=== PATIENT | female | born 1930 | race Caucasian/White ===

== ENCOUNTER 2018-07-15 05:27 | Observation (INO) | payer MEDICARE, BC ==
[2018-07-13 16:24] LABS: BASOPHILS # (AUTO) 0.1 (0.0-0.1); EOSINOPHILS # (AUTO) 0.2 (0.0-0.4); EOSINOPHILS % 2.2 % (0.0-6.0); HEMATOCRIT 37.8 % (34.2-44.1); HEMOGLOBIN 12.1 g/dL (12.0-16.0); LYMPHOCYTES # (AUTO) 1.5 (1.0-3.2); LYMPHOCYTES % 22.2 % (18.0-39.1); MEAN CORPUSCULAR HEMOGLOBIN 31.2 pg (28-32); MEAN CORPUSCULAR VOLUME 97.4 fL (81-99); MONOCYTES # (AUTO) 0.6 (0.2-0.8); MONOCYTES % 9.3 % (4.4-11.3); NEUTROPHILS # (AUTO) 4.3 (2.1-6.9); NEUTROPHILS % 64.3 % (38.7-80.0); PLATELET COUNT 267 x10e3/uL (140-360); RED BLOOD COUNT 3.88 x10e6/uL (3.6-5.1); RED CELL DISTRIBUTION WIDTH 13.5 % (11.7-14.4)
[2018-07-13 16:37] LABS: INR 0.95; PROTHROMBIN TIME 13.5 seconds (11.9-14.5)
[2018-07-13 16:38] LABS: PARTIAL THROMBOPLASTIN TIME 27.7 seconds (23.8-35.5)
[2018-07-13 16:49] LABS: ANION GAP 14.1 mmol/L (8-16); CALCIUM 8.5 mg/dL (8.4-10.2); CREATININE, SERUM 2.12 mg/dL (0.57-1.11); POTASSIUM 5.1 mmol/L (3.5-5.1)
--- NOTE | 2018-07-13 17:39 | Diagnostic Imaging Report ---
Frontal and lateral views of the chest. HISTORY: Preop, lumbar surgery COMPARISON: None available. DISCUSSION: Lungs: Minimal biapical pleural-parenchymal scarring. Mildly increased peribronchial interstitial markings. No evidence of a consolidative pneumonia or pulmonary alveolar edema. Pleura: No pleural effusion or pneumothorax. Heart and mediastinum: The cardiomediastinal silhouette appears unremarkable. Atherosclerotic vascular calcifications at the aortic arch. Bones and soft tissues: Diffusely decreased mineralization of the osseous structures limits bone detail. Approximately 50% height loss of a mid to upper thoracic spine vertebral body. Multilevel degenerative changes of the axial skeleton. IMPRESSION: 1. Findings which can be seen in the setting of a nonspecific bronchitis, correlate for chronic bronchitis. 2. Diffuse osseous demineralization and an age-indeterminate anterior wedge compression fracture deformity of a mid to upper thoracic spine vertebral body. Signed by: Dr. Ravi Moreno D.O., M.M.M. on 07/13/2018 5:36 PM
[~2018-07-15] VITALS: Ht 162.6 cm; Wt 104.1 kg
[~2018-07-15 05:27] MED LIST: ATORVASTATIN CA10 MG PO; CARVEDILOL12.5 MG PO; CARVEDILOL25 MG PO; CLOPIDOGREL75 MG PO; EVISTA60 MG PO; GLIMEPIRIDE2 MG PO; GLIMEPIRIDE4 MG PO; HYDRALAZINE HCL10 MG PO; HYDROCHLOROTHIA25 MG PO; ISOSORBIDE DINIT5 MG PO; LANTUS 3ML100 UNITS/ SQ; METFORMIN HCL500 MG PO; NORVASC5 MG PO; NOVOLOG100 UNITS1 SC; SODIUM BICARBO650 MG PO; VENLAFAXINE HC150 M1 PO
--- OUTSIDE RECORDS SUMMARY | 2018-07-15 05:31 | XMS REPORT ---
Author Author [facility] Address Unknown Phone Unavailable Care Team Providers Care Signals Intelligence Analyst Name Role Phone CITLALI DURANT Unavailable Unavailable Payers Payer Name Policy Type Policy Number Effective Date Expiration Date Problems This patient has no known problems. Allergies, Adverse Reactions, Alerts Allergy Name Allergy Type Status Severity Reaction(s) Onset Date Inactive Date Treating Clinician Comments morphine DA Active SV 2018-03-10 00:00:00 codeine DA Active SV 2018-03-10 00:00:00 hydrocodone DA Active SV 2018-03-10 00:00:00 tramadol DA Active U 2018-03-10 00:00:00 morphine DA Active SV 2018-03-09 00:00:00 codeine DA Active SV 2018-03-09 00:00:00 hydrocodone DA Active SV 2018-03-09 00:00:00 tramadol DA Active U 2018-03-09 00:00:00 morphine DA Active SV 2017-01-23 00:00:00 codeine DA Active SV 2017-01-23 00:00:00 hydrocodone DA Active SV 2017-01-23 00:00:00 Medications This patient has no known medications. Results Test Description Test Time Test Comments Text Results Atomic Results Result Comments CHEST 2 VIEWS 2018-07-13 17:33:00 [facility] [address], [place] [address] Patient Name: DEBORAH CH MR #: [id number] : 1930 Age/Sex: 87/F Req #: [id number] Adm Physician: Ordered by: CITLALI DURANT MD Report #: [id number] Location: OR Room/Bed: Procedure: [id number] DX/CHEST 2 VIEWS Exam Date: 07/13/18 Exam Time: 1657 REPORT STATUS: Signed Frontal and lateral views of the chest. HISTORY: Preop, lumbar surgery COMPARISON: None available. DISCUSSION: Lungs: Minimal biapical pleural-parenchymal scarring. Mildly increased peribronchial interstitial markings. No evidence of a consolidative pneumonia or pulmonary alveolar edema. Pleura: No pleural effusion or pneumothorax. Heart and mediastinum: The cardiomediastinal silhouette appears unremarkable. Atherosclerotic vascular calcifications at the aortic arch. Bones and soft tissues: Diffusely decreased mineralization of the osseous structures limits bone detail. Approximately 50% height loss of a mid to upper thoracic spine vertebral body. Multilevel degenerative changes of the axial skeleton. IMPRESSION: 1. Findings which can be seen in the setting of a nonspecific bronchitis, correlate for chronic bronchitis. 2. Diffuse osseous demineralization and an age-indeterminate anterior wedge compression fracture deformity of a mid to upper thoracic spine vertebral body. Signed by: Vanessa ArroyoO., M.M.M. on 07/13/2018 5:36 PM Dictated By: STEFFANY DE GUZMAN DO [id number] Transcribed By: MO on 07/13/18 1736 COPY TO: CITLALI DURANT MD
[2018-07-15] MEDS ORDERED: CEFAZOLIN SOD 2 GM/D5W 50ML 50 ML IV ONE (05:40)
[2018-07-15] MEDS ORDERED: BUPIVACAINE 0.5%/EPI 30 ML SDV INJ ONE (06:23)
[2018-07-15] MEDS ORDERED: THROMBIN FOR SOLN 5,000 UNIT VIAL ONE (06:23)
[2018-07-15] MEDS ORDERED: GELATIN SPONGE 12-7MM ONE (06:23)
[2018-07-15] MEDS ORDERED: BACITRACIN 50,000 UNIT VIAL ONE (06:23)
[2018-07-15] MEDS ORDERED: ACETAMINOPHEN 1000 MG/100 ML 100 ML IV ONE (07:11)
[2018-07-15] MEDS ORDERED: LIDOCAINE HCL (LTA) 4 ML SOLN ONE (07:11)
[2018-07-15] MEDS ORDERED: HEPARIN SOD/SOD CHLORIDE 1,000 ML ONE (07:29)
[2018-07-15] MEDS ORDERED: FENTANYL CITRATE/PF 100MCG/2 ML INJ ONE (09:07)
[2018-07-15] MEDS ORDERED: ZOLPIDEM TARTRATE 5 MG TAB PO PRN (09:15)
[2018-07-15] MEDS ORDERED: ONDANSETRON HCL INJ 2MG/ML 2ML 2 MG/ML VIAL IV PRN (09:15)
[2018-07-15] MEDS ORDERED: CARISOPRODOL 350 MG TAB PO PRN (09:15)
[2018-07-15] MEDS ORDERED: DEXTROSE 50% SYRINGE 50 ML IV PRN (09:15)
[2018-07-15] MEDS ORDERED: HYDROMORPHONE 2MG/ML 2 MG/ML ML IV PRN (09:15)
[2018-07-15] MEDS ORDERED: OXYCODONE/ACETAMINOPHEN 5-325 1 EACH TABLET PO PRN (09:15)
[2018-07-15] MEDS ORDERED: ACETAMINOPHEN 325 MG TAB PO PRN (09:15)
[2018-07-15] MEDS ORDERED: CEPACOL SORE THROAT LOZENGES PO PRN (09:15)
[2018-07-15] MEDS ORDERED: PROMETHAZINE HCL (IM) 25 MG/ML VIAL IM PRN (09:15)
[2018-07-15] MEDS ORDERED: MAGNESIUM/ALUMINUM/SIMETHICONE 30 ML UDC PO PRN (09:15)
[2018-07-15] MEDS ORDERED: HYDRALAZINE HCL 20 MG/ML VIAL ONE (09:59)
[2018-07-15] MEDS: INSULIN LISPRO 100 UNIT/1 ML 3ML VIAL SQ SCH ×3 (11:30→21:00)
--- NOTE | 2018-07-15 11:39 | Operative Report ---
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 PROCEDURES 1. L3 bilateral decompressive laminectomy and L3-L4 bilateral medial facetectomy, 40886. 2. L4 bilateral partial decompressive laminectomy, 16564. ANESTHESIA: General. INDICATIONS: Patient is an elderly woman who presents with multilevel degenerative disk disease and degenerative scoliosis, worse at L3-4 where she has developed severe spinal stenosis with neurogenic claudication. She was taken to the operating room for a L3-4 bilateral decompressive laminectomy. PROCEDURE: After the induction of general anesthesia, the patient was placed on the operating table in prone position over a Primitivo frame. Lumbar region was prepped and draped in a sterile fashion. A preoperative x-ray was obtained. A small midline incision was created. Lumbar fascia was opened along the midline, and the spinous processes and laminae of L3 and L4 were exposed. A probe was placed under the L4 lamina, and x-ray was obtained. Localization was then directed to the L3-L4 segment. Portions of the L3 and L4 spinous processes were resected. An expandable speculum retractor was deployed. The operating microscope was brought in. A high-speed drill equipped with a shayna bur was used to drill the inferior aspect of the lamina of L3 and superior aspect of the lamina of L4 and the medial aspect of the L3-L4 hypertrophic facet joints bilaterally. The markedly hypertrophic ligamentum flavum was then resected, and the dural sac and L4 traversing nerve roots were fully exposed and decompressed bilaterally. Meticulous hemostasis was secured. Small pieces of Gelfoam were left in the lateral recesses for hemostasis. A Hemovac drain was placed and brought out through a separate stab incision. The wound was closed in multiple layers with #0 and 2-0 Vicryl sutures. The skin was closed with 3-0 Monocryl sutures in subcuticular fashion. Steri-Strips and dressing were applied. The patient was awakened, extubated and taken to the postanesthesia care unit in stable condition. No intraoperative complications were encountered. Estimated blood loss was 30 mL. Job#: [id number]
[2018-07-15] MEDS: HYDRALAZINE HCL 10 MG TAB PO SCH ×3 (13:00→21:41)
[2018-07-15] MEDS ORDERED: TRAMADOL HCL 50 MG TAB ONE (13:27)
[2018-07-15 14:46] VITALS: BP 147/64
[2018-07-15] MEDS: CEFAZOLIN SOD 1 GM/D5W 50ML 50 ML IV SCH ×2 (15:20→21:41)
[2018-07-15 15:48] VITALS: BP 130/60
--- NOTE | 2018-07-15 16:25 | NUR ---
PT ADMITTED FROM PACU TO UNIT THIS AFTERNOON 1400, S/P LAMINECTOMY WITH PNEUMO VAC INPLACE AND MINIMAL DRAINAGE NOTED. AAOX4, CONTINENT OF B/B AMBULATE WITH A ROLLING WALKER FROM HOME. ORIENTED TO ROOM WITH CALL LIGHT INPLACE. DENIES PAIN AT THIS MOMENT. FAMILY IN ROOM .
[2018-07-15] MEDS ORDERED: NON-FORMULARY MEDICATION (Isosorbide Dinitrate 5 MG) PO SCH (17:00)
[2018-07-15] MEDS: LACTATED RINGER'S 1,000 ML IV SCH ×2 (17:24→21:59)
[2018-07-15] MEDS: CARVEDILOL 12.5 MG TAB PO SCH (17:57)
[2018-07-15] MEDS: ISOSORBIDE DINITRATE 20 MG TAB PO SCH (17:58)
[2018-07-15] MEDS ORDERED: ONDANSETRON HCL INJ 2MG/ML 2ML 2 MG/ML VIAL ONE (19:54)
[2018-07-15] MEDS ORDERED: ROCURONIUM BROMIDE 10 MG/ML 5ML VIAL ONE (19:54)
[2018-07-15] MEDS ORDERED: LIDOCAINE HCL 2% LOCAL INJ 5 ML SDV VIAL INJ ONE (19:54)
[2018-07-15] MEDS ORDERED: PROPOFOL IV EMULSION 10 MG/ML 20 ML VIAL ONE (19:54)
[2018-07-15] MEDS ORDERED: DEXAMETHASONE SOD PHOS INJ 4 MG/ML VIAL ONE (19:54)
[2018-07-15] MEDS ORDERED: DESFLURANE 240 ML BTL INH ONE (19:54)
[2018-07-15] MEDS ORDERED: LIDOCAINE HCL 2% JELLY 5 ML TUBE ONE (19:54)
--- NOTE | 2018-07-15 20:45 | NUR ---
RECEIVED PT IN BED AOX3 RESPIRATIONS ARE EVEN AND UNLABORED DRESSING AT THE BACK DRY AND INTACT AND DRAINING RICARDO COLORED FLUID HELPED THE TO THE RESTROOM.
[2018-07-15 20:53] VITALS: BP 172/76
[2018-07-15] MEDS ORDERED: ATORVASTATIN 40 MG TAB PO SCH (21:00)
[2018-07-15] MEDS: TRAMADOL HCL 50 MG TAB PO PRN (21:57)
[2018-07-16] VITALS: BP 185/79
[2018-07-16] MEDS: LACTATED RINGER'S 1,000 ML IV SCH (01:44)
[2018-07-16 04:00] VITALS: BP 164/71
[2018-07-16] MEDS: CEFAZOLIN SOD 1 GM/D5W 50ML 50 ML IV SCH (06:07)
[2018-07-16] MEDS: TRAMADOL HCL 50 MG TAB PO PRN (06:08)
[2018-07-16] MEDS ORDERED: SOD POLYSTYRENE SULFONATE SUSP 15 GM/60 ML BTL PO ONE (06:15)
[2018-07-16 06:42] VITALS: BP 164/71
--- NOTE | 2018-07-16 07:00 | NUR ---
GOT THE ORDER FROM DR CURTIS TO GIVE KEXALATE CHECKED THE CHART I COULD NOT FIND OUT DR JOYCE NAME IN PATIENTS LIST SO PAGED AND TALKED DR DURANT REGARDING THAT HE SAID TALK DR CURTIS AND CONFIRM THE CORRECT PT BECAUSE HE DID NOT PUT THE CONSULTATION AND FOLLOW HIS ORDERS SO PAGED AND TALKED DR CURTIS HE IS VERY UPSET ABOUT THE CLARIFICATION HE SAID HER NAME IN HIS LIST THE I T NOTIFIED THE KITCHEN CHEF SHE CHECKED HIS NAME IS NOT IN OUR LIST
--- NOTE | 2018-07-16 07:10 | NUR ---
RCD PT AT BED PT IS ALERT AND ORIENTED PT RESTING ON BED NO SIGNS OF ANY DISTRESS NOTED IV PATENT NO SIGNS OF BLEEDING ON THE SURGICAL SITE BED LOW AND LOCKED CALL LIGHT IN REACH
[2018-07-16 07:26] LABS: ANION GAP 12.4 mmol/L (8-16); POTASSIUM 5.4 mmol/L (3.5-5.1)
[2018-07-16] MEDS: INSULIN LISPRO 100 UNIT/1 ML 3ML VIAL SQ SCH ×2 (07:30→11:30)
--- NOTE | 2018-07-16 07:31 | NUR ---
PT C/O PAIN AND GIVEN ORDERED PAIN MEDICATION .REPORT GIVEN TO THE ONCOMING NURSE.
--- NOTE | 2018-07-16 07:32 | NUR ---
HEMOVAC DRAINAGE IS 11O ML.
[2018-07-16 08:00] VITALS: BP 198/79
--- NOTE | 2018-07-16 08:15 | NUR ---
PULLED DRAIN OUT NO SIGNS OF BLEEDING 15 ML DRAINAGE IN THE BAG
--- NOTE | 2018-07-16 08:15 | NUR ---
DRESSING CHANGED ON THE BACK
[2018-07-16 09:00] VITALS: BP 198/79
[2018-07-16] MEDS ORDERED: NON-FORMULARY MEDICATION (Venlafaxine Hcl (Venlafaxine Hcl Er) 150 MG) PO SCH (09:00)
[2018-07-16] MEDS: HYDRALAZINE HCL 10 MG TAB PO SCH (09:00)
[2018-07-16] MEDS ORDERED: SODIUM BICARBONATE 650 MG TAB PO SCH (09:00)
[2018-07-16] MEDS: CARVEDILOL 12.5 MG TAB PO SCH (09:00)
[2018-07-16] MEDS ORDERED: VENLAFAXINE HCL 75 MG CAPCR PO SCH (09:00)
[2018-07-16] MEDS ORDERED: HYDROCHLOROTHIAZIDE 25 MG TAB PO SCH (09:00)
[2018-07-16] MEDS ORDERED: ATORVASTATIN 10 MG TAB PO SCH (09:00)
[2018-07-16] MEDS: ISOSORBIDE DINITRATE 20 MG TAB PO SCH (09:00)
--- NOTE | 2018-07-16 10:14 | NUR ---
CASE MANAGEMENT INITIAL ASSESSMENT Retail Coverage Merchandiser Lead to bedside to discuss plan of care with patient/family. CM/SW role and care transitions discussed. Anticipated discharge plan discussed along with duration of care. CM discussed patients right to make decisions in care. CM/SW work hours given. Patient lives: PATIENT LIVE IN APT ON THE 3RD FLOOR WITH [facility] IN [place], [place] WITH Admit/Transfer: OR POA/Emergency contact: MANJIT CH: [phone] Current/Previous Home Health: ONCE BEFORE. DOES NOT REMEMBER NAME PCP/Follow-up Care: DR. DORA RENE Current/Previous DME: TUB BENCH, ROLLATOR Other Services: NOT AT THIS TIME Employment Status: RETIRED Areas of Concerns: MOBILITY POST DISCHARGE Referral Needs: HOME HEALTH Education Needs: NOT AT THIS TIME IMM/SANTOS given and signed (if applicable): NOT AT THIS TIME Goal for discharge: DISCHARGE HOME INDEPENDENT WITH NO NEEDS CM left business card at the bedside with contact information. Name and number was also written on the patients whiteboard. Patient verbalized understanding of discussion. CM will follow-up with ongoing discharge and transition of care needs.
[2018-07-16 12:00] VITALS: BP 153/66
--- NOTE | 2018-07-16 12:28 | NUR ---
CM SPOKE TO PATIENT AT BEDSIDE REGARDING SANTOS LETTER. SANTOS LETTER GIVEN WITH EXPLANATION. ORIGINAL SIGNED AND PLACED IN CHART; COPY OF ORIGINAL DOCUMENT GIVEN TO PATIENT AT BEDSIDE AND PLACED IN CARE TRANSITION FOLDER. CM CONTACT INFORMATION GIVEN TO PATIENT FOR ANY NEEDS OR CONCERNS. PATIENT WITH NO FURTHER QUESTIONS.
[2018-07-16 14:11] LABS: ANION GAP 12.8 mmol/L (8-16); CALCIUM 8.9 mg/dL (8.4-10.2); CREATININE, SERUM 1.89 mg/dL (0.57-1.11); POTASSIUM 4.8 mmol/L (3.5-5.1)
--- NOTE | 2018-07-16 14:17 | NUR ---
PAGED DR CURTIS TO NOTIFY THE POTASSIUM LEVEL AND LEFT THE MESSAGE
--- NOTE | 2018-07-16 14:39 | NUR ---
AGAIN PAGED AND NOTIFIED THE POTASSIUM LEVEL AND GOT THE ORDER OK TO DISCHARGE
[2018-07-16] MEDS ORDERED: ULTRAM 50MG50 MG PO (15:08)
--- NOTE | 2018-07-16 15:30 | NUR ---
PT WENT HOME IN SAFE CONDITION WITH HER
== END 2018-07-16 15:46 | disposition home or self-care (01) ==
LOC: OR 05:27 → PACU V 09:07 → MED/SURG2 13:53
PROVIDERS: ADMIT Neurological Surgery; ATTEND Neurological Surgery
DX: M48.062 Spinal stenosis, lumbar region with neurogenic claudication (principal); I11.0 Hypertensive heart disease with heart failure; I50.9 Heart failure, unspecified; I25.10 Atherosclerotic heart disease of native coronary artery without angina pectoris; E11.9 Type 2 diabetes mellitus without complications; Z88.5 Allergy status to narcotic agent; Z01.810 Encounter for preprocedural cardiovascular examination; Z01.812 Encounter for preprocedural laboratory examination; Z01.811 Encounter for preprocedural respiratory examination; Z86.73 Personal history of transient ischemic attack (TIA), and cerebral infarction without residual deficits; F41.9 Anxiety disorder, unspecified; E78.5 Hyperlipidemia, unspecified; E87.6 Hypokalemia
CPT/HCPCS: 36415 ×3; 63047; 63048; 71046; 72020; 80048 ×2; 80051; 82948 ×2; 84132; 85025; 85610; 85730; 86850; 86900; 88304; 88311; 93005; 97116 ×2; 97161; G0378 ×2; J0131; J0360; J0690 ×3; J1100; J1170; J2001 ×2; J2405; J2704; J7121

== ENCOUNTER 2018-08-13 14:41 | Emergency (ER) | payer MEDICARE, BC ==
[~2018-08-13] VITALS: Ht 162.6 cm; Wt 103.9 kg
[~2018-08-13 14:41] MED LIST changes: +ULTRAM 50MG50 MG PO
--- NOTE | 2018-08-13 15:13 | NUR ---
REGULAR DIET ORDERED AND GIVEN TO PATIENT.
== END 2018-08-13 16:13 | disposition home or self-care (01) ==
LOC: ER 14:41
DX: E11.649 Type 2 diabetes mellitus with hypoglycemia without coma (principal); I10 Essential (primary) hypertension; N18.9 Chronic kidney disease, unspecified; I50.9 Heart failure, unspecified
CPT/HCPCS: 36415; 82948; 93005; 99283

== ENCOUNTER 2018-08-18 14:00 | Outpatient (RCR) | payer MEDICARE, BC | END 2018-08-19 | LOC: PT 14:00 | PROVIDERS: ATTEND Neurological Surgery | DX: M48.062 Spinal stenosis, lumbar region with neurogenic claudication (principal); M62.81 Muscle weakness (generalized) ==

== ENCOUNTER 2018-09-14 14:59 | Outpatient (RCR) | payer MEDICARE, BC | END 2018-09-19 | LOC: PT 14:59 | PROVIDERS: ATTEND Neurological Surgery | DX: M48.062 Spinal stenosis, lumbar region with neurogenic claudication (principal); M62.81 Muscle weakness (generalized) | CPT/HCPCS: 97139 ==

== ENCOUNTER 2020-01-19 09:37 | Inpatient (IN) | payer MEDICARE, BC, OTHER ==
[~2020-01-19] VITALS: Ht 162.6 cm; Wt 98.4 kg
[2020-01-19] VITALS (7 sets, daily range): BP systolic 101–190; BP diastolic 55–87
--- NOTE | 2020-01-19 11:30 | NUR ---
Patient here from outside ed. Dr. Scales notified. Consults notified. at bedside, admission complete. Dr ricketts notified and orders recd for meds and patients history
[2020-01-19] MEDS ORDERED: KETOROLAC TROMETHAMINE 30 MG/ML VIAL IV ONE (12:45)
[2020-01-19] MEDS ORDERED: FAMOTIDINE 20 MG TAB PO ONE (14:00)
[2020-01-19] MEDS ORDERED: CLOPIDOGREL BISULFATE 75 MG TAB PO ONE (14:00)
[2020-01-19] MEDS ORDERED: SOD POLYSTYRENE SULFONATE SUSP 15 GM/60 ML BTL PO ONE (15:00)
[2020-01-19] MEDS ORDERED: LACTULOSE SYRUP 20 GM/30 ML UDC PO ONE ×2 (15:00→17:45)
--- NOTE | 2020-01-19 15:12 | Diagnostic Imaging Report ---
MRI SPINE CERVICAL WO HISTORY: Fall, syncope COMPARISON: Report from head CT dated 10/17/2015 TECHNIQUE: Sagittal T1, sagittal T2, sagittal inversion recovery, axial T2 , axial T2 GRE, and axial T1 weighted MR images of the cervical spine were obtained without intravenous contrast. Motion artifacts obscure some details. DISCUSSION: Alignment: Normal lordosis. No scoliosis. Vertebrae: No definite evidence for fractures, or neoplasm. Cervicomedullary junction: Mild T2 hyperintensity in the all may be due to chronic microvascular ischemic change. Spinal cord: Normal in signal and morphology from the foramen magnum through T4. Soft tissues: The carotid arteries have a retropharyngeal course. Approximately 1.2 cm T2 hyperintense thyroid isthmus nodule is present; no further imaging is indicated. Multilevel advanced disc degeneration is present. There are nonspecific minimal inflammatory endplate changes at C4-C5 and C6-C7. Mild atlantoaxial arthrosis is present as well. C2-C3: Mild to moderate right and mild left foraminal stenoses due to uncovertebral and facet arthrosis. No significant canal or foraminal stenosis. The right C2-C3 facet joint appears fused. C3-C4: Mild to moderate canal stenosis due to posterior disc osteophyte complex and ligamentum flavum thickening. Severe right and moderate to severe left foraminal stenoses due to uncovertebral and facet arthrosis. C4-C5: Moderate canal stenosis due to posterior disc osteophyte complex and ligamentum flavum thickening. Severe right and moderate left foraminal stenoses due to uncovertebral and facet arthrosis. There is mild periarticular edema along the right C4-C5 facet joint. C5-C6: Moderate canal stenosis due to posterior disc osteophyte complex and ligamentum flavum thickening. Moderate right and severe left foraminal stenoses due to uncovertebral and facet arthrosis. C6-C7: Moderate canal stenosis due to posterior disc osteophyte complex and ligamentum flavum thickening. Moderate to severe bilateral foraminal stenoses due to uncovertebral and facet arthrosis. C7-T1: Minimal grade 1 anterolisthesis of C7 on T1 is due to facet arthrosis. No significant canal or foraminal stenosis. 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 IMPRESSION: 1. Nonspecific right C4-C5 facet synovitis. 2. Multilevel advanced disc degeneration with nonspecific minimal inflammatory endplate changes at C4-C5 and C6-C7. 3. Multilevel degenerative canal stenoses - moderate from C4-C5 to C6-C7. 4. Multilevel moderate to severe bilateral degenerative foraminal stenoses as described above. Signed by: Dr. Carlito Montiel M.D. on 01/19/2020 3:09 PM
--- NOTE | 2020-01-19 15:32 | NUR ---
patient back from MRI w/o contrast spine, MD Carlito Montiel called from radiology and states in some images pt might be having an acute interracial hemorrhage. Dr. Scales notified and he ordered stop plavix and stat ct head/brain. Same ordered Addendum: 01/19/20 at 1535 by TRACE SHANKAR RN intracranial hemorrhage
--- NOTE | 2020-01-19 15:34 | Diagnostic Imaging Report ---
MRI SPINE THORACIC WO HISTORY: Fall, syncope COMPARISON: Concurrent cervical spine MRI; report from head CT dated 10/17/2015 TECHNIQUE: Sagittal T1, sagittal T2, sagittal STIR, and axial T2 weighted MR images of the thoracic spine were obtained. Motion artifacts obscure some details. DISCUSSION: Thoracic kyphosis is exaggerated at T6-T7. Mild thoracic dextroscoliosis is also centered at approximately T6-T7. Mild to moderate T7 vertebral compression fracture is associated with marrow edema that extends into the bilateral pedicles and pars. There is mild local prevertebral and paravertebral edema/STIR hyperintensity. This fracture may be acute or subacute. There is no significant retropulsion. Associated small bilateral T7-T8 facet effusions are present. Adjacent chronic mild to moderate T6 vertebral compression deformity is associated with minimal inferior endplate edema, likely related to degenerative change (type I Modic change). There is no significant retropulsion. The thoracic cord is normal in signal and morphology. The paravertebral and paraspinal soft tissues are otherwise unremarkable. Degenerative changes: Mild multilevel thoracic disc degeneration is present. Nonspecific minimal inflammatory endplate changes are seen at T10-T11. Mild canal stenosis at T9-T10 and T10-T11 is due to disc bulges and ligamentum flavum thickening. No other significant canal or foraminal stenosis is seen. Additional findings: Partially imaged, apparent lobular susceptibility artifact is seen throughout the ventricles and basilar cisterns on localizer images. This is suspicious for intraventricular/subarachnoid hemorrhage. A few small T2 hyperintense lesions in the right kidney are most likely cysts. IMPRESSION: 1. Mild to moderate T7 vertebral compression fracture (with marrow edema) may be acute or subacute. There is no significant retropulsion. 2. Chronic mild to moderate T6 vertebral compression fracture without significant retropulsion. 3. No cord compression. 4. Underlying mild multilevel thoracic disc degeneration as described above. 5. Questionable findings suspicious for intracranial intraventricular and subarachnoid hemorrhage on localizer images (partially imaged). Further evaluation with noncontrast head CT is recommended given history of fall. Items 1, 3, and 5 were discussed with Federica Fitzpatrick RN, at 3:14 PM on 01/19/2020. Signed by: Dr. Carlito Montiel M.D. on 01/19/2020 3:31 PM
--- NOTE | 2020-01-19 15:50 | Diagnostic Imaging Report ---
MRI SPINE LUMBAR WO HISTORY: Fall, syncope COMPARISON: Lateral lumbar spine radiographs 07/15/2018; concurrent thoracic spine MRI TECHNIQUE: Sagittal T1, sagittal T2, sagittal STIR, axial T2, coronal T2, and axial proton density weighted images of the lumbar spine were obtained without contrast. DISCUSSION: Number of non-rib bearing lumbar vertebral bodies: 5. Alignment: Normal lordosis. Thoracolumbar levoscoliosis is centered at approximately L1-L2. Vertebrae: No definite evidence for acute fractures, or neoplasm. Conus medullaris: Normal, ends at T12-L1. Cauda equina: No masses or arachnoiditis. Posterior paraspinal muscles: There is paraspinal muscle atrophy throughout the lumbar spine. Soft tissues: Posterior incision signal changes are noted. Multiple T2 hyperintense renal lesions, right greater than left, are most likely cysts. Right renal pelviectasis versus parapelvic cyst is present. Sigmoid colon diverticulosis is partially imaged. Multilevel advanced lumbar disc degeneration is present with nonspecific minimal multilevel inflammatory endplate changes. T12-L1: Disc bulge without significant canal or foraminal stenosis. L1-L2: Mild right foraminal stenosis due to disc bulge and facet arthrosis. No significant canal or left foraminal stenosis. L2-L3: Mild canal stenosis due to disc bulge and ligamentum flavum thickening is accentuated by epidural lipomatosis. The thecal sac is mildly effaced. Mild bilateral foraminal stenoses due to disc bulge and facet arthrosis. L3-L4: Laminectomy changes without significant central canal stenosis. Both lateral recesses remain mildly effaced, left greater than right. Moderate to severe right and mild to moderate left foraminal stenoses due to disc bulge and facet arthrosis. L4-L5: Mild to moderate canal stenosis due to disc bulge and ligamentum flavum thickening. Both lateral recesses are mildly effaced. Mild right and moderate to severe left foraminal stenoses due to disc bulge and facet arthrosis. 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 Mild left foraminal stenosis due to uncovered disc bulge. No significant canal or right foraminal stenosis. IMPRESSION: 1. No definite acute fracture in the lumbar spine. 2. Multilevel advanced lumbar disc degeneration with thoracolumbar levoscoliosis centered at approximately L1-L2. 3. Laminectomy changes at L3-L4 without significant central canal stenosis. Both lateral recesses at L3-L4 remain mildly effaced, left greater than right, due to disc bulge. 4. 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 5. Mild L2-L3 and mild to moderate L4-L5 degenerative canal stenoses accentuated by mild epidural lipomatosis. 6. Multilevel degenerative foraminal stenoses - moderate to severe on the right at L3-L4 and on the left at L4-L5. Signed by: Dr. Carlito Montiel M.D. on 01/19/2020 3:46 PM
[2020-01-19] MEDS: HYDRALAZINE HCL 10 MG TAB PO SCH ×2 (15:56→22:00)
[2020-01-19] MEDS: CARVEDILOL 12.5 MG TAB PO SCH (16:01)
[2020-01-19 16:21] LABS: ALBUMIN 3.1 g/dL (3.5-5.0); ALBUMIN/GLOBULIN RATIO 0.9 (0.8-2.0); ANION GAP 14.2 mmol/L (8-16); CALCIUM 8.5 mg/dL (8.4-10.2); CREATININE, SERUM 2.22 mg/dL (0.57-1.11)
[2020-01-19 16:40] LABS: POTASSIUM 6.2 mmol/L (3.5-5.1)
[2020-01-19 17:00] LABS: BASOPHILS % 0.3 % (0.0-1.0); HEMATOCRIT 38.8 % (34.2-44.1); HEMOGLOBIN 11.9 g/dL (12.0-16.0); LYMPHOCYTES % 7.7 % (18.0-39.1); MEAN CORPUSCULAR HEMOGLOBIN 28.4 pg (28-32); MEAN CORPUSCULAR HGB CONC 30.7 g/dL (31-35); MEAN CORPUSCULAR VOLUME 92.6 fL (81-99); MONOCYTES # (AUTO) 1.1 (0.2-0.8); MONOCYTES % 8.7 % (4.4-11.3); NEUTROPHILS # (AUTO) 10.2 (2.1-6.9); NEUTROPHILS % 81.8 % (38.7-80.0); PLATELET COUNT 235 x10e3/uL (140-360); RED BLOOD COUNT 4.19 x10e6/uL (3.6-5.1); RED CELL DISTRIBUTION WIDTH 14.9 % (11.7-14.4)
--- NOTE | 2020-01-19 17:13 | Diagnostic Imaging Report ---
History:Fall, syncope Comparison studies: None Technique: Axial images were obtained from the skull base to the vertex. Coronal and sagittal images reconstructed from the axial data. Dose modulation, iterative reconstruction, and/or weight based adjustment of the mA/kV was utilized to reduce the radiation dose to as low as reasonably achievable. Intravenous contrast: None Findings: Scalp/skull: No abnormalities. Extra-axial spaces: No masses. No fluid collections. Brain sulci: Moderately prominent. Ventricles: Moderate compensatory dilatation. No hydrocephalus. Parenchyma: Cortical encephalomalacic changes in the left lateral occipital lobe associated with regional volume loss and compensatory dilatation of the left occipital horn. 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 Confluent hypodensities throughout the supratentorial white matter are small vessel ischemic changes. No masses, hemorrhage, acute or additional chronic cortical vascular insults. Sellar/suprasellar region: No abnormalities. Craniocervical junction: Patent foramen magnum. No Chiari one malformation. Incidental findings: Subtle calcifications in the carotid siphons . Absent lenses. Punctate senile calcifications in the orbits. Impression: No acute intracranial abnormalities. Chronic findings: 1. Moderate generalized volume loss. 2. Diffuse supratentorial white matter microvascular ischemic changes. Signed by: Dr. Brian Olmos M.D. on 01/19/2020 5:10 PM
[2020-01-19] MEDS ORDERED: INSULIN REGULAR, HUMAN 100 UNIT/1 ML 3ML VIAL SQ ONE (17:45)
[2020-01-19] MEDS ORDERED: DEXTROSE 50% SYRINGE 50 ML IV ONE (17:45)
[2020-01-19] MEDS ORDERED: SOD POLYSTYRENE SULFONATE SUSP 15 GM/60 ML BTL PR ONE (17:45)
[2020-01-19] MEDS ORDERED: HYDRALAZINE HCL 10 MG TAB PO SCH (18:00)
--- NOTE | 2020-01-19 18:32 | NUR ---
FORTUNE COOKIE MAKER INFORMED ME THAT THE PATIENT SEEMS TO BE HAVING TROUBLE BREATHING. ASSESSED, PLACED ON 6 L NC FOR 02 SATS AROUND 80%. CALLED , WHO ORDERED LASIX, CONSULT MD TORIN, SAME AND THEN CALLED A RAPID WHEN O2 SATS KEPT DROPPING TO THE 80S WITH 6 LITERS AND PATIENT BECAME DIAPHOETIC AND PALE.
[2020-01-19] MEDS ORDERED: FUROSEMIDE INJ 10 MG/ML 4 ML VIAL IV NR ×2 (18:45→19:00)
[2020-01-19] MEDS ORDERED: LEVALBUTEROL HCL SOLN NEBU 0.63 MG/3 ML NEB ONE (18:55)
[2020-01-19] MEDS ORDERED: IPRATROPIUM BROMIDE 0.02% 2.5 ML NEB ONE (18:57)
[2020-01-19] MEDS ORDERED: ASPIRIN 81 MG CHEW TAB PO ONE (19:00)
[2020-01-19] MEDS ORDERED: PIPER-TAZ 3.375 GM 50 ML IV ONE (19:15)
[2020-01-19] MEDS ORDERED: LABETALOL HCL 5 MG/ML 20ML VIAL IV NR ×2 (19:30)
[2020-01-19] MEDS ORDERED: LABETALOL HCL 20 ML ONE (19:36)
[2020-01-19 19:37] LABS: CREATINE KINASE MB 3.5 ng/mL (0-5.0)
--- NOTE | 2020-01-19 19:37 | Diagnostic Imaging Report ---
EXAMINATION: CHEST SINGLE (PORTABLE) INDICATION: Shortness of breath. COMPARISON: None FINDINGS: TUBES and LINES: None. LUNGS: There are prominent interstitial lung markings throughout both lungs and hazy opacification of the bilateral lung bases. PLEURA: No pleural effusion or pneumothorax. HEART AND MEDIASTINUM: The heart is enlarged. The mediastinal silhouette is otherwise normal. Atherosclerotic calcification of the thoracic aortic arch. BONES AND SOFT TISSUES: No acute osseous lesion. Chronic fracture deformity of the left mid clavicle. Soft tissues are unremarkable. UPPER ABDOMEN: No free air under the diaphragm. IMPRESSION: Cardiomegaly with pulmonary edema. Superimposed infection of the bilateral lung bases cannot be excluded and should be considered in the proper clinical context. Signed by: Grupo Mcghee MD on 01/19/2020 7:34 PM
[2020-01-19 19:58] LABS: ABG HCO3 28 mmol/L (22-26); ABG PCO2 57 mmHg (35-45); ABG PO2 463 mmHg (80-105); ABG TCO2 29
--- NOTE | 2020-01-19 20:15 | NUR ---
notified of patients change of condition. orders all entered and completed. Blood gases to be drawn in about an hour and results called. Patient to get a helms catheter for accurate outputs. On bipap. awaiting a bed in the icu. supervisor stitching department aware. Resting now with o2 on.
[2020-01-19] MEDS ORDERED: INSULIN GLARGINE 100 UNITS/ML VIAL SQ SCH (21:00)
[2020-01-19] MEDS ORDERED: ATORVASTATIN 20 MG TAB PO SCH (21:00)
--- NOTE | 2020-01-19 21:00 | NUR ---
Damon catheter 16Fr inserted using sterile technique. Pt tolerated well. Yellow clear urine draining to bedside.
--- NOTE | 2020-01-19 21:27 | NUR ---
LM for Dr Scales to call back regarding Ct Brain results and BS 322
[2020-01-19] MEDS: ATORVASTATIN 40 MG TAB PO SCH (22:00)
--- NOTE | 2020-01-19 22:04 | NUR ---
LM for Dr. Scales to call back regarding Ct Brain results and BS 322
[2020-01-19] MEDS ORDERED: DEXTROSE 50% SYRINGE 50 ML IV PRN ×2 (22:15→22:30)
[2020-01-19] MEDS: INSULIN LISPRO 100 UNIT/1 ML 3ML VIAL SQ SCH (22:28)
--- NOTE | 2020-01-19 22:30 | NUR ---
Notified Dr. Moncada to inform of BS 322, New orders given to continue Lantus 18 units in Am order from home and start on Medium dose sliding scale on Humalog. 16 units Humalog given to right arm. Report given to Maxine BACON in [facility]. Informed that messages were left for Dr. Scales regarding CT. Pt in stable condition.
--- NOTE | 2020-01-19 23:00 | NUR ---
Received patient alert, on BIPAP, vitals stable, no complaints raised
--- NOTE | 2020-01-19 23:37 | Consultation ---
DATE OF CONSULTATION: Pulmonary Consultation. REASON FOR CONSULT: Shortness of breath. HISTORY OF PRESENT ILLNESS: Ms. Stewart is an 89-year-old female. She presented with a fall. She was admitted by Dr. Scales. Today I was called that the patient's oxygen saturation is dropping to 86% and she is more short of breath. She does not have any history of sleep apnea. Chest x-ray suggested that the patient possibly has a right middle lobe and lower lobe pneumonia and mild fluid overload. She has a history of hypertension, chronic kidney disease, and diabetes. PAST MEDICAL HISTORY: Hypertension, chronic renal failure, hyperlipidemia, and diabetes. FAMILY AND SOCIAL HISTORY: She does not smoke. Does not drink. MEDICATIONS: Reviewed. REVIEW OF SYSTEMS: GENERAL: Denies any fever or chills. HEAD: Denies any head trauma. ENT: Denies any earache. CVS: Denies any chest pain. RESPIRATORY: Shortness of breath. The rest of the review of systems are negative except as in HPI. PHYSICAL EXAMINATION: VITAL SIGNS: Temperature 97.2, pulse of 109, blood pressure 142/79. CHEST: Crackles on the bases. HEART: S1, S2 audible. ABDOMEN: Soft. EXTREMITIES: Pedal edema. NEUROLOGIC: Awake and alert. LABORATORY DATA: White count of 12,000. Chemistry; sodium 134, potassium 6.2, and creatinine 2.2. ASSESSMENT/PLAN: Ms. Stewart is an 89-year-old female, she likely has a pneumonia. I have started the patient on IV Zosyn, possibly fluid overload one dose of Lasix has been given. We will re-evaluate in a.m. The patient has chronic kidney disease. We will follow the creatinine and re-dose Lasix. Currently, the patient is on BiPAP, I have changed the setting to 50% and 12/8 and she is saturating 100%. Thank you for this consult. MD ISIDRO Cruz/SHELLY /[id number]
[2020-01-20] VITALS (8 sets, daily range): BP systolic 101–154; BP diastolic 51–89
--- NOTE | 2020-01-20 05:00 | NUR ---
Remains on BIPAP, stable, had a big BM post Kayexalate in the night dirty linens changed
[2020-01-20 05:04] LABS: ALBUMIN 2.9 g/dL (3.5-5.0); ALBUMIN/GLOBULIN RATIO 0.8 (0.8-2.0); ANION GAP 18.9 mmol/L (8-16); CALCIUM 8.6 mg/dL (8.4-10.2); CREATININE, SERUM 2.53 mg/dL (0.57-1.11); POTASSIUM 3.9 mmol/L (3.5-5.1)
[2020-01-20] MEDS: INSULIN LISPRO 100 UNIT/1 ML 3ML VIAL SQ SCH ×6 (07:26→20:58)
[2020-01-20] MEDS: INSULIN GLARGINE 100 UNITS/ML VIAL SQ SCH ×3 (07:26→10:37)
[2020-01-20] MEDS ORDERED: INSULIN GLARGINE 100 UNITS/ML VIAL SQ SCH (09:00)
[2020-01-20] MEDS ORDERED: VENLAFAXINE HCL 75 MG TAB PO SCH (09:00)
[2020-01-20] MEDS ORDERED: HYDROCHLOROTHIAZIDE 25 MG TAB PO SCH (09:00)
[2020-01-20] MEDS: CARVEDILOL 12.5 MG TAB PO SCH ×2 (09:35→17:13)
[2020-01-20] MEDS: VENLAFAXINE HCL 75 MG CAPCR PO SCH (09:35)
[2020-01-20] MEDS: CHOLECALCIFEROL 1,000 UNIT TAB PO SCH (09:35)
[2020-01-20] MEDS: SODIUM BICARBONATE 650 MG TAB PO SCH (09:35)
--- NOTE | 2020-01-20 11:03 | Diagnostic Imaging Report ---
EXAMINATION: CHEST SINGLE (PORTABLE) INDICATION: Syncope, fall COMPARISON: Chest radiograph 01/19/2020 FINDINGS: LINES/TUBES:EKG leads overlie the chest. LUNGS:The lungs are moderately inflated. There is perihilar fullness and indistinctness of the pulmonary vasculature. Unchanged right greater than left lower lung patchy opacities. PLEURA:No pleural effusion or pneumothorax. MEDIASTINUM:The cardiomediastinal silhouette appears normal in size and shape. Atherosclerotic calcifications of the thoracic aorta. BONES/SOFT TISSUES:No acute osseous injury. ABDOMEN:No free air under the diaphragm. IMPRESSION: Unchanged right greater than left lower lung patchy opacities Signed by: Quan Muniz MD on 01/20/2020 11:00 AM
[2020-01-20] MEDS: PIPERACILLIN/TAZO 2.25 GM 50 ML IV SCH ×3 (11:45→23:11)
[2020-01-20] MEDS: AZITHROMYCIN 500MG/NS 250 ML 250 ML IV SCH (14:10)
[2020-01-20] MEDS ORDERED: HYDRALAZINE HCL 10 MG TAB PO SCH (15:00)
[2020-01-20 15:06] LABS: FREE T4 (FREE THYROXINE) 0.79 ng/dL (0.8-1.8); THYROID STIMULATING HORMONE 0.167 uIU/mL (0.350-4.940)
--- NOTE | 2020-01-20 15:24 | Consultation ---
DATE OF CONSULTATION: 01/19/2020 Endocrine Consultation The patient of Dr. Scales. Thank you very much for referring this patient. HISTORY OF PRESENT ILLNESS: This is an 89-year-old white female, who is very well known to me from her previous hospital admissions and followup in my office. The patient came to the hospital because of the fall and she had questionable fracture of the spine. The patient had an MRI done. The patient has multiple medical problems including history of diabetes mellitus type 2, uncontrolled with complications, hypertension, chronic renal failure, coronary artery disease, and congestive cardiac failure. At the time of admission, blood sugar was 322. The patient is also admitted to rule out COVID-19. MEDICATIONS: The patient is on several medications at home including lispro 15 units 3 times a day and Humalog 10 units. PHYSICAL EXAMINATION: GENERAL: Today, the patient is alert, awake, but slightly confused. VITAL SIGNS: Her heart rate is around 70 and blood pressure 130/80 mmHg. HEENT: Essentially unremarkable. Thyroid is palpable. Clinically, she is near euthyroid. CHEST: Bilateral vesicular breathing. She has bilateral bronchospasm. CARDIAC: First and second heart sounds. There is no third or fourth heart sound. Ejection systolic murmur sound grade 2/6. EXTREMITIES: The patient has evidence of diabetic sensory neuropathy in both lower extremities. She has mild pedal edema. CLINICAL IMPRESSION: Diabetes mellitus type 2, uncontrolled with complication, syncope, history of a fall, rule out COVID-19, congestive cardiac failure, coronary artery disease, and chronic renal failure. PLAN: At this time is to monitor her blood sugars closely. Start her back on the Lantus and Humalog insulin. Thanks for referring this patient. I will be following this patient along with you. MD ASHLEY Dubon/SHELLY /[id number]
[2020-01-20] MEDS: HYDRALAZINE HCL 25 MG TAB PO SCH ×2 (16:01→20:35)
--- NOTE | 2020-01-20 16:09 | NUR ---
Dr Villalobos has been in with pt. He has evaluated the ekg strips from this am's alarms. No new orders.
[2020-01-20] MEDS ORDERED: FUROSEMIDE INJ 10 MG/ML 4 ML VIAL IV ONE (17:45)
[2020-01-20] MEDS ORDERED: ACETAMINOPHEN 325 MG TAB PO PRN (18:00)
[2020-01-20] MEDS ORDERED: ACETAMINOPHEN 325 MG TAB ONE (18:03)
--- NOTE | 2020-01-20 18:10 | Consultation ---
DATE OF CONSULTATION: 01/19/2020 REASON FOR CONSULTATION: Hyperkalemia. HISTORY OF PRESENT ILLNESS: This is an 89-year-old female, underlying history of chronic kidney disease stage 3, type 2 diabetes, has multiple thoracic vertebral fractures, chronic pain, just underwent MRI, results are pending. She is complaining of pain in the back and short of breath. She states because of pain, she has difficulty inhaling and nevertheless, her labs had shown a sodium of 134, chloride 101, bicarbonate 25 with a BUN 44, creatinine 2.2, potassium 6.2, and blood sugar 275. She is currently lying supine. Denies diarrhea, nausea, or vomiting. ALLERGIES: SHE IS ALLERGIC TO OPIOIDS, CODEINE, HYDROCODONE, AND MORPHINE. PAST MEDICAL HISTORY: She also has prior history of CVA, appendectomy, hysterectomy, and carotid artery disease. CURRENT MEDICATIONS: Not reconciled yet. She has just been admitted. SOCIAL HISTORY: Does not smoke or drink. FAMILY HISTORY: Significant for hypertension. PHYSICAL EXAMINATION: GENERAL: Awake, alert, lying supine. VITAL SIGNS: Blood pressure of 173/73, pulse rate 99, afebrile, and respiratory rate 22. HEAD AND NECK: Cornea clear. Oral mucosa moist. LUNGS: Decreased air entry, but no rales. HEART: S1 and S2 audible. ABDOMEN: Soft and nontender. EXTREMITIES: No edema noted upper and lower extremities. SKIN: Appears fairly dry. IMPRESSION: [id number] kidney failure, hyperkalemia, multifactorial, likely medication-induced, currently short of breath with pain in her back. Has underlying history of hypertension. PLAN: On working up, giving Kayexalate and lactulose as long as renal diet. Workup and repeat labs ordered. Nurse to call me with results. Urine studies ordered. MD BRENDA Henley/SHELLY /[id number]
[2020-01-20] MEDS ORDERED: VANCOMYCIN 1GM/NS 250 ML 250 ML IV ONE (18:30)
--- NOTE | 2020-01-20 19:05 | Diagnostic Imaging Report ---
EXAMINATION: CHEST SINGLE (PORTABLE) INDICATION: Dyspnea. COMPARISON: Same day radiographs FINDINGS: TUBES and LINES: None. LUNGS: Redemonstration of moderately inflated lungs with perihilar fullness and indistinctness of the pulmonary vasculature. There is also redemonstration of right greater than left patchy opacities. PLEURA: No pleural effusion or pneumothorax. HEART AND MEDIASTINUM: The cardiomediastinal silhouette is unremarkable. Atherosclerotic calcification of the thoracic aorta. BONES AND SOFT TISSUES: No acute osseous lesion. Soft tissues are unremarkable. UPPER ABDOMEN: No free air under the diaphragm. IMPRESSION: No interval change in moderately inflated lungs with perihilar fullness, indistinctness of the pulmonary vasculature and right greater than left patchy opacities. This constellation of findings may represent multifocal pneumonia with pulmonary vascular congestion and superimposed atelectasis. Follow-up to resolution. Signed by: Grupo Mcghee MD on 01/20/2020 7:02 PM
[2020-01-20 20:03] LABS: ABG HCO3 28 mmol/L (22-26); ABG PCO2 48 mmHg (35-45); ABG PH 7.37 (7.35-7.45); ABG PO2 160 mmHg (80-105); ABG TCO2 29
[2020-01-20] MEDS: ACETAMINOPHEN 650 MG SUPP PR PRN (20:08)
--- NOTE | 2020-01-20 20:11 | NUR ---
called and reported ABG result to dr Peña, no orders obtained.
--- OUTSIDE RECORDS SUMMARY | 2020-01-20 20:37 | XMS REPORT | Continuity of Care Document ---
Author Author [facility] t Organization [facility] Address [address] [place] [address] Phone Unavailable Care Team Providers Care [employer] Officer Name Role Phone SUE RENE MD PCP SUE RENE Attphys Unavailable CITLALI DURANT Attphys Unavailable SUE RENE Admphys Unavailable Payers Payer Name Policy Type Policy Number Effective Date Expiration Date [facility] [id number] 2011 00:00:00 [facility] Medicare A & B [id number] 1997 00:00:00 [facility] Problems Condition Name Condition Details Condition Category Status Onset Date Resolution Date Last Treatment Date Treating Clinician Comments Source CVA (cerebral vascular accident) CVA (cerebral vascular accident ) Problem Active 2015-10-17 00:00:00 [facility] Allergies, Adverse Reactions, Alerts Allergy Name Allergy Type Status Severity Reaction(s) Onset Date Inacti ve Date Treating Clinician Comments Source Morphine Allergy to Substance Active Mild RASH 2018-08-13 00:00:00 [facility] Codeine Allergy to Substance Active Mild N/V RASH 2018-08-13 00:00:00 [facility] Hydrocodone Allergy to Substance Active Moderate hives 2018-08-13 00: 00:00 [facility] ALL OPIOIDS Allergy to Substance Active Severe HIVES, NAUSEA 2018-07-13 00:00:00 [facility] morphine DA Active SV 2018-03-10 00:00:00 [facility] codeine DA Active SV 2018-03-10 00:00:00 [facility] hydrocodone DA Active SV 2018-03-10 00:00:00 [facility] tramadol DA Active U 2018-03-10 00:00:00 [facility] morphine DA Active SV 2018-03-09 00:00:00 [facility] codeine DA Active SV 2018-03-09 00:00:00 [facility] hydrocodone DA Active SV 2018-03-09 00:00:00 [facility] tramadol DA Active U 2018-03-09 00:00:00 [facility] morphine DA Active SV 2017-01-23 00:00:00 [facility] codeine DA Active SV 2017-01-23 00:00:00 [facility] hydrocodone DA Active SV 2017-01-23 00:00:00 [facility] Medications Ordered Medication Name Filled Medication Name Start Date Stop Da te Current Medication? Ordering Clinician Indication Dosage Frequency Signature (SIG) Comments Components Source Atorvastatin Calcium 10 Mg Tablet Atorvastatin Calcium 10 Mg Tablet Yes 40 Daily [facility] Carvedilol 12.5 Mg Tablet Carvedilol 12.5 Mg Tablet Yes 12.5 Twice A Day [facility] Clopidogrel Bisulfate (Clopidogrel) 75 Mg Tablet Clopi dogrel Bisulfate (Clopidogrel) 75 Mg Tablet Yes 75 Daily [facility] Hydralazine Hcl 10 Mg Tablet Hydralazine Hcl 10 Mg Tablet Y es 10 Four Times Daily [facility] Hydrochlorothiazide 25 Mg Tablet Hydrochlorothiazide 25 Mg Tablet Yes 12.5 Daily [facility] Insulin Aspart (Novolog) 100 Units/1 Ml Inj Insulin As part (Novolog) 100 Units/1 Ml Inj Yes [facility] Insulin Glargine (Lantus 3ML Pen) 100 Units/1 Ml Inj I nsulin Glargine (Lantus 3ML Pen) 100 Units/1 Ml Inj Yes 18 Daily In A m. [facility] Isosorbide Dinitrate 5 Mg Tablet Isosorbide Dinitrate 5 Mg Tablet Yes 5 Twice A Day [facility] Sodium Bicarbonate 650 Mg Tablet Sodium Bicarbonate 650 Mg Tablet Yes 650 Daily [facility] Tramadol Hcl (Ultram 50MG*) 50 Mg Tab Tramadol Hcl (Ultram 50MG*) 5 0 Mg Tab Yes 50 Every 4 Hours [facility] Venlafaxine Hcl (Venlafaxine Hcl Er) 150 Mg Tab.er.24 Venlafaxine Hcl (Venlafaxine Hcl Er) 150 Mg Tab.er.24 Yes 150 Daily [facility] Glimepiride 2 Mg Tablet, 2 Mg Oral Glimepiride 2 Mg Tablet, 2 Mg Oral 2018-07-13 00:00:00 No 2 Twice A Day [facility] Metformin Hcl 500 Mg Tablet, 1000 Mg Oral Metformin Hc l 500 Mg Tablet, 1000 Mg Oral 2018-07-13 00:00:00 No 1000 Twice A Day [facility] Raloxifene Hcl (Evista) 60 Mg Tablet, 60 Mg Oral Ralox ifene Hcl (Evista) 60 Mg Tablet, 60 Mg Oral 2018-07-13 00:00:00 No 60 Daily [facility] Glimepiride 4 Mg Tablet, 4 Mg Oral Glimepiride 4 Mg Tablet, 4 Mg Oral 2015-10-18 00:00:00 No 4 Daily [facility] Amlodipine Besylate (Norvasc) 5 Mg Tab, 5 Mg Oral Amlo dipine Besylate (Norvasc) 5 Mg Tab, 5 Mg Oral 2015-10-17 00:00:00 No 5 Aretha y [facility] Carvedilol 25 Mg Tablet, 25 Mg Oral Carvedilol 25 Mg Tablet, 25 Mg Oral 2015-10-17 00:00:00 No 25 Daily [facility] Procedures Procedure Date / Time Performed Performing Clinician Ramona e REMOVE SPINE LAMINA 1 LMBR 2018-07-15 00:00:00 CITLALI DURANT [facility] REMOVE SPINAL LAMINA ADD-ON 2018-07-15 00:00:00 CITLALI DURANT [facility] X-ray of chest, two views 2018-07-13 00:00:00 BHARGAVCITLALI [facility] Encounters Start Date/Time End Date/Time Encounter Type Admission Type Attendi [facility] Care Department Encounter ID Source 2018-09-14 14:59:00 2018-09-19 23:59:00 Discharged Recurring [facility] [id number] [facility] 2018-08-04 14:15:00 2018-08-19 23:59:00 Discharged Recurring [facility] [id number] [facility] 2018-08-13 14:41:00 2018-08-13 16:13:00 Departed Emergency Room [facility] [id number] [facility] 2018-07-15 09:07:00 2018-07-16 15:46:00 Discharged Inpatient (obs) 3 BHARGAV CITLALI [facility] [id number] [facility] Results Test Description Test Time Test Comments Results Result Comments Source CHEST SINGLE (PORTABLE) 2020-01-19 19:28:00 [place] [address] Patient Name: DEBORAH CH MR #: [id number] : 1930 Age/Sex: 89/F Req #: [id number] Adm Physician: SUE RENE MD Ordered by: SUE RENE MD Report #: [id number] Location: MED/SURG2 Room/Bed: [facility] Procedure: [id number] DX/CHEST SINGLE (PORTABLE) Exam Date: 01/19/20 Exam Time: 1847 REPORT STATUS: Signed EXAMINATION: CHEST SINGLE (PORTABLE) INDICATION: Shortness of breath. COMPARISON: None FINDINGS: TUBES and LINES: None. LUNGS: There are prominent interstitial lung markings throughout both lungs and hazy opacification of the bilateral lung bases. PLEURA: No pleural effusion or pneumothorax. HEART AND MEDIASTINUM: The heart is enlarged. The mediastinal silhouette is otherwise normal. Atherosclerotic calcification of the thoracic aortic arch. BONES AND SOFT TISSUES: No acute osseous lesion. Chronic fracture deformity of the left mid clavicle. Soft tissues are unremarkable. UPPER ABDOMEN: No free air under the diaphragm. IMPRESSION: Cardiomegaly with pulmonary edema. Superimposed infection of the bilateral lung bases cannot be excluded and should be considered in the proper clinical context. Signed by: Elle Paulson MD on 01/19/2020 7:34 PM Dictated By: ELLE PAULSON MD 33 Transcribed By: MO on 01/19/201933 COPY TO: SUE RENE MD CT BRAIN WO 2020-01-19 17:07:00 [place] [address] Patient Name: DEBORAH CH MR #: [id number] : 1930 Age/Sex: 89/F Req #: [id number] Adm Physician: SUE RENE MD Ordered by: TRUNG VITAL MD Report #: [id number] Location: MED/SURG2 Room/Bed: [facility] Procedure: [id number] CT/CT BRAIN WO Exam Date: 01/19/20 Exam Time: 1616 REPORT STATUS: Signed History:Fall, syncope Comparison studies: None Technique: Axial images were obtained from the skull base to the vertex. Coronal and sagittal images reconstructed from the axial data. Dose modulation, iterative reconstruction, and/or weight based adjustment of the mA/kV was utilized to reduce the radiation dose to as low as reasonably achievable. Intravenous contrast: None Findings: Scalp/skull: No abnormalities. Extra-axial spaces: No masses. No fluid collections. Brain sulci: Moderately prominent. Ventricles: Moderate compensatory dilatation. No hydrocephalus. Parenchyma: Cortical encephalomalacic changes in the left lateral occipital lobe associated with regional volume loss and compensatory dilatation of the left occipital horn. 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 Confluent hypodensities throughout the supratentorial white matter are small vessel ischemic changes. No masses, hemorrhage, acute or additional chronic cortical vascular insults. Sellar/suprasellar region: No abnormalities. Craniocervical junction: Patent foramen magnum. No Chiari one malformation. Incidental findings: Subtle calcifications in the carotid siphons . Absent lenses. Punctate senile calcifications in the orbits. Impression: No acute intracranial abnormalities. Chronic findings: 1. Moderate generalized volume loss. 2. Diffuse supratentorial white matter microvascular ischemic changes. Signed by: Dr. Brian Toledo M.D. on 01/19/2020 5:10 PM Dictated By: BRIAN TOLEDO MD, MD 09 Transcribed By: MO on 01/19/201709 COPY TO: TRUNG VITAL MD MRI SPINE LUMBAR WO 2020-01-19 15:31:00 [place] [address] Patient Name: DEBORAH CH MR #: [id number] : 1930 Age/Sex: 89/F Req #: [id number] Adm Physician: SUE RENE MD Ordered by: TRUNG VITAL MD Report #: [id number] Location: MED/SURG2 Room/Bed: [facility] Procedure: [id number] MRI/MRI SPINE LUMBAR WO Exam Date: Exam Time: REPORT STATUS: Signed MRI SPINE LUMBAR WO HISTORY: Fall, syncope COMPARISON: Lateral lumbar spine radiographs 07/15/2018; concurrent thoracic spine MRI TECHNIQUE: Sagittal T1, sagittal T2, sagittal STIR, axial T2, coronal T2, and axial proton density weighted images of the lumbar spine were obtained without contrast. DISCUSSION: Number of non-rib bearing lumbar vertebral bodies: 5. Alignment: Normal lordosis. Thoracolumbar levoscoliosis is centered at approximately L1-L2. Vertebrae: No definite evidence for acute fractures, or neoplasm. Conus medullaris: Normal, ends at T12-L1. Cauda equina: No masses or arachnoiditis. Posterior paraspinal muscles: There is paraspinal muscle atrophy throughout the lumbar spine. Soft tissues: Posterior incision signal changes are noted. Multiple T2 hyperintense renal lesions, right greater than left, are most likely cysts. Right renal pelviectasis versus parapelvic cyst is present. Sigmoid colon diverticulosis is partially imaged. Multilevel advanced lumbar disc degeneration is present with nonspecific minimal multilevel inflammatory endplate changes. T12-L1: Disc bulge without significant canal or foraminal stenosis. L1-L2: Mild right foraminal stenosis due to disc bulge and facet arthrosis. No significant canal or left foraminal stenosis. L2-L3: Mild canal stenosis due to disc bulge and ligamentum flavum thickening is accentuated by epidural lipomatosis. The thecal sac is mildly effaced. Mild bilateral foraminal stenoses due to disc bulge and facet arthrosis. L3-L4: Laminectomy changes without significant central canal stenosis. Both lateral recesses remain mildly effaced, left greater than right. Moderate to severe right and mild to moderate left foraminal stenoses due to disc bulge and facet arthrosis. L4-L5: Mild to moderate canal stenosis due to disc bulge and ligamentum flavum thickening. Both lateral recesses are mildly effaced. Mild right and moderate to severe left foraminal stenoses due to disc bulge and facet arthrosis. 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 Mild left foraminal stenosis due to uncovered disc bulge. No significa nt canal or right foraminal stenosis. IMPRESSION: 1. No definite acute fracture in the lumbar spine. 2. Multilevel advanced lumbar disc degeneration with thoracolumbar levoscoliosis centered at approximately L1-L2. 3. Laminectomy changes at L3-L4 without significant central canal stenosis. Both lateral recesses at L3-L4 remain mildly effaced, left greater than right, due to disc bulge. 4. 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 5. Mild L2-L3 and mild to moderate L4-L5 degenerative canal stenoses accentuated by mild epidural lipomatosis. 6. Multilevel degenerative foraminal stenoses - moderate to severe on the right at L3-L4 and on the left at L4-L5. Signed by: Dr. Carlito Montiel M.D. on 01/19/2020 3:46 PM Dictated By: CARLITO MONTIEL MD 45 Transcribed By: MO on 01/19/201545 COPY TO: TRUNG VITAL MD MRI SPINE THORACIC WO 2020-01-19 15:15:00 [place] [address] Patient Name: DEBORAH CH MR #: [id number] : 1930 Age/Sex: 89/F Req #: [id number] Adm Physician: SUE RENE MD Ordered by: TRUNG VITAL MD Report #: [id number] Location: MED/SURG2 Room/Bed: [facility] Procedure: [id number] MRI/MRI SPINE THORACIC WO Exam Date: Exam Time: REPORT STATUS: Signed MRI SPINE THORACIC WO HISTORY: Fall, syncope COMPARISON: Concurrent cervical spine MRI; report from head CT dated 10/17/2015 TECHNIQUE: Sagittal T1, sagittal T2, sagittal STIR, and axial T2 weighted MR images of the thoracic spine were obtained. Motion artifa cts obscure some details. DISCUSSION: Thoracic kyphosis is exaggerated at T6-T7. Mild thoracic dextroscoliosis is also centered at approximately T6- T7. Mild to moderate T7 vertebral compression fracture is associated with marrow edema that extends into the bilateral pedicles and pars. There is mild local prevertebral and paravertebral edema/STIR hyperintensity. This fracture may be acute or subacute. There is no significant retropulsion. Associated small bilateral T7-T8 facet effusions are present. Adjacent chronic mild to moderate T6 vertebral compression deformity is associated with minimal inferior endplate edema, likely related to degenerative change (type I Modic change). There is no significant retropulsion. The thoracic cord is normal in signal and morphology. The paravertebral and paraspinal soft tissues are otherwise unremarkable. Degenerative changes: Mild multilevel thoracic disc degeneration is present. Nonspecific minimal inflammatory endplate changes are seen at T10-T11. Mild canal stenosis at T9-T10 and T10-T11 is due to disc bulges and ligamentum flavum thickening. No other significant canal or foraminal stenosis is seen. Additional findings: Partially imaged, apparent lobular susceptibility artifact is seen throughout the ventricles and basilar cisterns on localizer images. This is suspicious for intraventricula r/subarachnoid hemorrhage. A few small T2 hyperintense lesions in the right kidney are most likely cysts. IMPRESSION: 1. Mild to moderate T7 vertebral compression fracture (with marrow edema) may be acute or subacute. There is no significant retropulsion. 2. Chronic mild to moderate T6 vertebral compression fracture without significant retropulsion. 3. No cord compression. 4. Underlying mild multilevel thoracic disc degeneration as described above. 5. Questionable findings suspicious for intracranial intraventricular and subarachnoid hemorrhage on localizer images (partially imaged). Further evaluation with noncontrast head CT is recommended given history of fall. Items 1, 3, and 5 were discussed with Federica Fitzpatrick RN, at 3:14 PM on 01/19/2020. Signed by: Dr. Carlito Montiel M.D. on 01/19/2020 3:31 PM Dictated By: CARLITO MONTIEL MD 30 Transcribed By: MO on 01/19/201530 COPY TO: TRUNG VITAL MD MRI SPINE CERVICAL WO 2020-01-19 14:59:00 [place] [address] Patient Name: DEBORAH CH MR #: [id number] : 1930 Age/Sex: 89/F Req #: [id number] Adm Physician: SUE RENE MD Ordered by: TRUNG VITAL MD Report #: [id number] Location: [facility]/SURG2 Room/Bed: [facility] Procedure: [id number] MRI/MRI SPINE CERVICAL WO Exam Date: Exam Time: REPORT STATUS: Signed MRI SPINE CERVICAL WO HISTORY: Fall, syncope COMPARISON: Report from head CT dated 10/17/2015 TECHNIQUE: Sagittal T1, sagittal T2, sagittal inversion recovery, axial T2 , axial T2 GRE, and axial T1 weighted MR images of the cervical spine were obtained with out intravenous contrast. Motion artifacts obscure some details. DISCUSSION: Alignment: Normal lordosis. No scoliosis. Vertebrae: No definite evidence for fractures, or neoplasm. Cervicomedullary junction: Mild T2 hyperintensity in the all may be due to chronic microvascular ischemic change. Spinal cord: Normal in signal and morphology from the foramen magnum through T4. Soft tissues: The carotid arteries have a retropharyngeal course. Approximately 1.2 cm T2 hyperintense thyroid isthmus nodule is present; no further imaging is indicated. Multilevel advanced disc degen eration is present. There are nonspecific minimal inflammatory endplate changes at C4-C5 and C6-C7. Mild atlantoaxial arthrosis is present as well. C2-C3: Mild to moderate right and mild left foraminal stenoses due to uncovertebral and facet arthrosis. No significant canal or foraminal stenosis. The right C2-C3 facet joint appears fused. C3-C4: Mild to moderate canal stenosis due to posterior disc osteophyte complex and ligamentum flavum thickening. Severe right and moderate to severe left foraminal stenoses due to uncovertebral and facet arthrosis. C4-C5: Moderate canal stenosis due to posterior disc osteophyte complex and ligamentum flavum thickening. Severe right and moderate left foraminal stenoses due to uncovertebral and facet arthrosis. There is mild periarticular edema along the right C4-C5 facet joint. C5-C6: Moderate canal stenosis due to posterior disc osteophyte complex and ligamentum flavum thickening. Moderate right and severe left foraminal stenoses due to uncovertebral and facet arthrosis. C6-C7: Moderate canal stenosis due to posterior disc osteophyte complex and ligamentum flavum thickening. Moderate to severe bilateral foraminal stenoses due to uncovertebral and facet arthrosis. C7-T1: Minimal grade 1 anterolisthesis of C7 on T1 is due to facet arthrosis. No significant canal or foraminal stenosis. 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 IMPRESSION: 1. Nonspecific right C4- C5 facet synovitis. 2. Multilevel advanced disc degeneration with nonspecifi c minimal inflammatory endplate changes at C4-C5 and C6-C7. 3. Multilevel degenerative canal stenoses - moderate from C4-C5 to C6-C7. 4. Multilevel moderate to severe bilateral degenerative foraminal stenoses as described above. Signed by: Dr. Carlito Montiel M.D. on 01/19/2020 3:09 PM Dictated By: CARLITO MONTIEL MD [id number] Transcribed By: MO on 01/19/20 7014 COPY TO: TRUNG VITAL MD - [employer] [facility] 2019-06-09 16:06:00 Name: LILIAN DEBORAH MENDEZ ANJEL [facility] : 1930 Age/S: 88 / F [address] Unit #: [id number] Loc: [place] [address] Phys: Sue Rene MD Acct: [id number] Dis Date: Status: REG CLI PHONE #: [phone] Exam Date: 06/09/2019 1517 FAX #: [phone] Reason: ABD PAIN EXAMS: CPT CODE: [id number] US ABDOMEN LTD 55280 EXAM: Ultrasound abdomen, limited; INFORMATION: Abdominal pain; FINDINGS: The liver is of normal size and shape. It shows coarse echotexture; no focal lesions. The gallbladder is slightly distended but is without stones and shows normal wall thickness. No dilatation of intra or extrahepatic bile ducts. The pancreas is unremarkable. No ascites. The right kidney is relatively small. It measures 7.8 x 3.5 x 3.1 cm. No hydronephrosis or stones and no parenchymal abnormalities. A 9 mm cyst is seen in the right kidney. Imaged portions of the IVC and abdominal aorta are unremarkable. IMPRESSION: 1. Coarse echotexture of the liver suggests diffuse parenchymal disease; recommend clinical correlation. 2. No evidence of gallstones. 3. Slightly atrophic right kidney with small cys t. Location code: [facility] at 1606 Reported and signed by: Erich Trujillo M.D. CC: Sue Rene MD Technologist: GONZALEZ LIMON RT(R),[facility] Trncob Date/Time: 06/09/2019 (160) tTHERESA Orig Print D/T: S: 06/09/2019 (8103) Probe: PAGE 1 Signed Report Bedside Glucose 2018-08-14 13:20:00 Test Item Bedside Glucose (test code = 72422-6) 83 70-120 Meter ID: [id number] [facility] Glucose 2018-08-14 13:20:00* Test Item Value Reference Range Interpretation Comments Bedside Glucose (test code = 81281-6) 83 70-120 Meter ID: [id number] [facility]odium Level 2018-07-16 14:12:00* Test Item Value Reference Range Interpretation Comments Sodium Level (test code = 2951-2) 137 136-145 [facility] [id number] 14:12:00* Test Item Value Reference Range Interpretation Comments Potassium Level (test code = 2823-3) 4.8 3.5-5.1 [facility]loride [id number] 14:12:00* Test Item Value Reference Range Interpretation Comments Chloride Level (test code = 2075-0) 101 98-107 [facility]wall[facility]bon Dioxide [id number] 14:12:00* Test Item Value Reference Range Interpretation Comments Carbon Dioxide Level (test code = 2028-9) 28 22-29 [facility]wall[facility]ion [id number] 14:12:00* Test Item Value Reference Range Interpretation Comments Anion Gap (test code = 22782-0) 12.8 8-16 [facility]wall[facility] Urea [id number] 14:12:00* Test Item Value Reference Range Interpretation Comments Blood Urea Nitrogen (test code = 3094-0) 33 7-26 H [facility]wallCreatinine2019-01-25 14:12:00* Test Item Value Reference Range Interpretation Comments Creatinine (test code = 2160-0) 1.89 0.57-1.11 H [facility]wallBUN/Creatinine Erprj1063-55-18 14:12:00* Test Item Value Reference Range Interpretation Comments BUN/Creatinine Ratio (test code = 3097-3) 17 6-25 [facility]wallEstimat Glomerular Filtration Rate 2018-07-16 14:12:00* Test Item Value Reference Range Interpretation Comments Estimat Glomerular Filtration Rate (test code = 556071418) 25 >60 L Ranges were taken from the National Kidney Disease Education Program and the [facility] literature.Reference ranges:60 or greater: Pblfhn34-76 ( for 3 consecutive months): Chronic kidney disease 15 or less: Kidney failureTexas Health Presbyterian Hospital of RockwallGlucose [id number] 14:12:00* Test Item Value Reference Range Interpretation Comments Glucose Level (test code = DOR1016) 203 74-118 H [facility]wallCalcium [id number] 14:12:00* Test Item Value Reference Range Interpretation Comments Calcium Level (test code = 72512-6) 8.9 8.4-10.2 [facility]odium [id number] 14:12:00* Test Item Value Reference Range Interpretation Comments Sodium Level (test code = 2951-2) 137 136-145 [facility]assium Gvahc0868-77-01 14:12:00* Test Item Value Reference Range Interpretation Comments Potassium Level (test code = 2823-3) 4.8 3.5-5.1 [facility]wallChloride [id number] 14:12:00* Test Item Value Reference Range Interpretation Comments Chloride Level (test code = 2075-0) 101 98-107 [facility]wallCarbon Dioxide [id number] 14:12:00* Test Item Value Reference Range Interpretation Comments Carbon Dioxide Level (test code = 2028-9) 28 22-29 [facility]wallAnion [id number] 14:12:00* Test Item Value Reference Range Interpretation Comments Anion Gap (test code = 24215-4) 12.8 8-16 [facility]wallBlood Urea Ltnwyfpq6245-56-83 14:12:00* Test Item Value Reference Range Interpretation Comments Blood Urea Nitrogen (test code = 3094-0) 33 7-26 [facility]wallCreatinine2019-01-25 14:12:00* Test Item Value Reference Range Interpretation Comments Creatinine (test code = 2160-0) 1.89 0.57-1.11 [facility]wallBUN/Creatinine Bzcan9844-25-67 14:12:00* Test Item Value Reference Range Interpretation Comments BUN/Creatinine Ratio (test code = 3097-3) 17 6-25 [facility] RockwallEstimat Glomerular Filtration Rate 2018-07-16 14:12:00* Test Item Value Reference Range Interpretation Comments Estimat Glomerular Filtration Rate (test code = 595438006) 25 >60 L Ranges were taken from the National Kidney Disease Education Program and the [employer] literature.Reference ranges:60 or greater: Rtrtor12-76 ( for 3 consecutive months): Chronic kidney disease 15 or less: Kidney failureTexas [facility] of RockwallGlucose Ulutm4595-48-42 14:12:00* Test Item Value Reference Range Interpretation Comments Glucose Level (test code = RUG6479) 203 74-118 H [facility]wallCalcium Gqbfc7140-07-99 14:12:00* Test Item Value Reference Range Interpretation Comments Calcium Level (test code = 22543-5) 8.9 8.4-10.2 [facility] Dzqqj2841-52-06 14:12:00* Test Item Value Reference Range Interpretation Comments Sodium Level (test code = 2951-2) 137 136-145 [facility]wallPotassium Qfduq6718-16-76 14:12:00* Test Item Value Reference Range Interpretation Comments Potassium Level (test code = 2823-3) 4.8 3.5-5.1 [facility]wallChloride Krnls0796-00-19 14:12:00* Test Item Value Reference Range Interpretation Comments Chloride Level (test code = 2075-0) 101 98-107 [facility]wallCarbon Dioxide Epebp6471-53-83 14:12:00* Test Item Value Reference Range Interpretation Comments Carbon Dioxide Level (test code = 2028-9) 28 22-29 [facility] RockwallAnion Jsa0275-41-17 14:12:00* Test Item Value Reference Range Interpretation Comments Anion Gap (test code = 44042-2) 12.8 8-16 [facility]wallBlood Urea Gdpixxbn7554-65-43 14:12:00* Test Item Value Reference Range Interpretation Comments Blood Urea Nitrogen (test code = 3094-0) 33 7-26 H [facility]wallCreatinine2019-01-25 14:12:00* Test Item Value Reference Range Interpretation Comments Creatinine (test code = 2160-0) 1.89 0.57-1.11 [facility]wallBUN/Creatinine Xaydv6842-29-58 14:12:00* Test Item Value Reference Range Interpretation Comments BUN/Creatinine Ratio (test code = 3097-3) 17 6-25 [facility]wallEstimat Glomerular Filtration Rate 2018-07-16 14:12:00* Test Item Value Reference Range Interpretation Comments Estimat Glomerular Filtration Rate (test code = 001051500) 25 >60 L Ranges were taken from the National Kidney Disease Education Program and the [employer] literature.Reference ranges:60 or greater: Kraphb17-21 ( for 3 consecutive months): Chronic kidney disease 15 or less: Kidney failureTexas [facility] RockwallGlucose Yvcoi0080-18-23 14:12:00* Test Item Value Reference Range Interpretation Comments Glucose Level (test code = DXH8727) 203 74-118 H [facility]wallCalcium Eiifq1889-44-82 14:12:00* Test Item Value Reference Range Interpretation Comments Calcium Level (test code = 87866-8) 8.9 8.4-10.2 [facility]odium Rugsg4263-69-33 14:12:00* Test Item Value Reference Range Interpretation Comments Sodium Level (test code = 2951-2) 137 136-145 [facility]wallPotassium Vfgor1718-65-04 14:12:00* Test Item Value Reference Range Interpretation Comments Potassium Level (test code = 2823-3) 4.8 3.5-5.1 [facility]wallChloride Dbajy3543-42-01 14:12:00* Test Item Value Reference Range Interpretation Comments Chloride Level (test code = 2075-0) 101 98-107 [facility] RockwallCarbon Dioxide Pxgmz7967-97-40 14:12:00* Test Item Value Reference Range Interpretation Comments Carbon Dioxide Level (test code = 2028-9) 28 22-29 [facility] RockwallAnion Hgx7231-51-41 14:12:00* Test Item Value Reference Range Interpretation Comments Anion Gap (test code = 33559-8) 12.8 8-16 [facility]wallBlood Urea Grftlakl8741-05-85 14:12:00* Test Item Value Reference Range Interpretation Comments Blood Urea Nitrogen (test code = 3094-0) 33 7-26 [facility]wallCreatinine2019-01-25 14:12:00* Test Item Value Reference Range Interpretation Comments Creatinine (test code = 2160-0) 1.89 0.57-1.11 [facility]wallBUN/Creatinine Qwqkz2525-28-45 14:12:00* Test Item Value Reference Range Interpretation Comments BUN/Creatinine Ratio (test code = 3097-3) 17 6-25 [facility]wallEstimat Glomerular Filtration Rate 2018-07-16 14:12:00* Test Item Value Reference Range Interpretation Comments Estimat Glomerular Filtration Rate (test code = 698297102) 25 >60 L Ranges were taken from the National Kidney Disease Education Program and the [employer] literature.Reference ranges:60 or greater: Ksvtke41-40 ( for 3 consecutive months): Chronic kidney disease 15 or less: Kidney failureTexas [facility] Hospital of RockwallGlucose Zvwdw4521-28-52 14:12:00* Test Item Value Reference Range Interpretation Comments Glucose Level (test code = SZU1337) 203 74-118 H [facility]wallCalcium Iuoyh3511-24-06 14:12:00* Test Item Value Reference Range Interpretation Comments Calcium Level (test code = 33271-8) 8.9 8.4-10.2 [facility] Mvkmtcg2107-93-86 11:58:00* Test Item Value Reference Range Interpretation Comments Bedside Glucose (test code = 39783-4) 189 70-120 H Meter ID: [id number] [facility] Glucose 2018-07-16 11:58:00* Test Item Value Reference Range Interpretation Comments Bedside Glucose (test code = 64938-5) 189 70-120 H Meter ID: [id number] Health [facility]wallCHEST 2 VIEWS 2018-07-13 17:33:00 [facility] [address] [place] [address] Patient Name: DEBORAH HC MR #: [id number] : 1930 Age/Sex: 87/F Req #: [id number] Adm Physician: Ordered by: CITLALI DURANT MD Report #: [id number] Location: OR Room/Bed: Procedure: [id number] DX/ CHEST 2 VIEWS Exam Date: 07/13/18 Exam Time: 165 REPORT STATUS: Signed Frontal and lateral views of the chest. HISTORY: Preop, lumbar surgery COMPARISON: None available. DISCUSSION: Lungs: Minimal biapical pleura l-parenchymal scarring. Mildly increased peribronchial interstitial markings. No evidence of a consolidative pneumonia or pulmonary alveolar edema. P leura: No pleural effusion or pneumothorax. Heart and mediastinum: The cardiomediastinal silhouette appears unremarkable. Atherosclerotic vascula r calcifications at the aortic arch. Bones and soft tissues: Diffusely decreased mineralization of the osseous structures limits bone detail. Appro ximately 50% height loss of a mid to upper thoracic spine vertebral body. Mult ilevel degenerative changes of the axial skeleton. IMPRESSION: 1. Fi ndings which can be seen in the setting of a nonspecific bronchitis, correlate for chronic bronchitis. 2. Diffuse osseous demineralization and an age-indet erminate anterior wedge compression fracture deformity of a mid to upper thora cic spine vertebral body. Signed by: Dr. Ravi De Guzman D.O., M.M.M. on 2018 5:36 PM Dictated By: RAVI DE GUZMAN DO 35 Transcribed By: MO on 07/13/181735 COPY TO: CITLALI DURANT MD Activated Partial Thromboplast Ewvh1210-70-33 16:39:00* Test Item Value Reference Range Interpretation Comments Activated Partial Thromboplast Time (test code = 49130-0) 27.7 23.8-35.5 [facility]wallActivated Partial Thromboplast Time 2018-07-13 16:39:00* Test Item Value Reference Range Interpretation Comments Activated Partial Thromboplast Time (test code = 46216-9) 27.7 23.8-35.5 [facility] RockwallActivated Partial Thromboplast Time 2018-07-13 16:39:00* Test Item Value Reference Range Interpretation Comments Activated Partial Thromboplast Time (test code = 38416-0) 27.7 23.8-35.5 [facility] RockwallActivated Partial Thromboplast Time 2018-07-13 16:39:00* Test Item Value Reference Range Interpretation Comments Activated Partial Thromboplast Time (test code = 09412-7) 27.7 23.8-35.5 [facility]wallProthrombin Mtjo6979-21-00 16:38:00* Test Item Value Reference Range Interpretation Comments Prothrombin Time (test code = 5902-2) 13.5 11.9-14.5 [facility] RockwallProthromb Time International Ratio 2018-07-13 16:38:00* Test Item Value Reference Range Interpretation Comments Prothromb Time International Ratio (test code = 6301-6) 0.95 Oral Anticoagulant Therapy INR Values:1. Low Intensity Therapy 1.5 - 2.02 . Moderate Intensity Therapy 2.0 - 3.03. High Intensity Therapy(1) 2.5 - 3. 54. High Intensity Therapy(2) 3.0 - 4.05. Panic Value INR > 5.0 [facility]wallProthrombin Pqcu7525-41-33 16:38:00* Test Item Value Reference Range Interpretation Comments Prothrombin Time (test code = 5902-2) 13.5 11.9-14.5 [facility] RockwallProthromb Time International Ratio 2018-07-13 16:38:00* Test Item Value Reference Range Interpretation Comments Prothromb Time International Ratio (test code = 6301-6) 0.95 Oral Anticoagulant Therapy INR Values:1. Low Intensity Therapy 1.5 - 2.02 . Moderate Intensity Therapy 2.0 - 3.03. High Intensity Therapy(1) 2.5 - 3. 54. High Intensity Therapy(2) 3.0 - 4.05. Panic Value INR > 5.0 [facility]wallProthrombin Ydzz5632-92-13 16:38:00* Test Item Value Reference Range Interpretation Comments Prothrombin Time (test code = 5902-2) 13.5 11.9-14.5 [facility]wallProthromb Time International Ratio 2018-07-13 16:38:00* Test Item Value Reference Range Interpretation Comments Prothromb Time International Ratio (test code = 6301-6) 0.95 Oral Anticoagulant Therapy INR Values:1. Low Intensity Therapy 1.5 - 2.02 . Moderate Intensity Therapy 2.0 - 3.03. High Intensity Therapy(1) 2.5 - 3. 54. High Intensity Therapy(2) 3.0 - 4.05. Panic Value INR > 5.0 [facility] RockwallProthrombsc Bqfh6201-12-76 16:38:00* Test Item Value Reference Range Interpretation Comments Prothrombin Time (test code = 5902-2) 13.5 11.9-14.5 [facility]wallProthromb Time International Ratio 2018-07-13 16:38:00* Test Item Value Reference Range Interpretation Comments Prothromb Time International Ratio (test code = 6301-6) 0.95 Oral Anticoagulant Therapy INR Values:1. Low Intensity Therapy 1.5 - 2.02 . Moderate Intensity Therapy 2.0 - 3.03. High Intensity Therapy(1) 2.5 - 3. 54. High Intensity Therapy(2) 3.0 - 4.05. Panic Value INR > 5.0 [facility]wallWhite Blood Rfazq6471-42-03 16:28:00* Test Item Value Reference Range Interpretation Comments White Blood Count (test code = 6690-2) 6.75 4.8-10.8 [facility] RockwallRed Blood Lnntr1012-02-81 16:28:00* Test Item Value Reference Range Interpretation Comments Red Blood Count (test code = 789-8) 3.88 3.6-5.1 [facility]wallHemoglobin2019-01-22 16:28:00* Test Item Value Reference Range Interpretation Comments Hemoglobin (test code = 50393-2) 12.1 12.0-16.0 [facility]wallHematocrit2019-01-22 16:28:00* Test Item Value Reference Range Interpretation Comments Hematocrit (test code = 4544-3) 37.8 34.2-44.1 [facility] RockwallMean Corpuscular Grtmjy9974-71-50 16:28:00* Test Item Value Reference Range Interpretation Comments Mean Corpuscular Volume (test code = 787-2) 97.4 81-99 [facility]wallMean Corpuscular Dyyyridozt7283-06-48 16:28:00* Test Item Value Reference Range Interpretation Comments Mean Corpuscular Hemoglobin (test code = 785-6) 31.2 28-32 [facility]wallMean Corpuscular Hemoglobin Concent 2018-07-13 16:28:00* Test Item Value Reference Range Interpretation Comments Mean Corpuscular Hemoglobin Concent (test code = 786-4) 32.0 31-35 [facility] RockwallRed Cell Distribution Czlxq5200-67-20 16:28:00* Test Item Value Reference Range Interpretation Comments Red Cell Distribution Width (test code = 08045-6) 13.5 11.7 -14.4 [facility] RockwallPlatelet Yvaky8101-23-10 16:28:00* Test Item Value Reference Range Interpretation Comments Platelet Count (test code = 777-3) 267 140-360 [facility]wallNeutrophils (%) (Auto)2018-07-13 16:28:00 * Test Item Value Reference Range Interpretation Comments Neutrophils (%) (Auto) (test code = 79402-1) 64.3 38.7-80.0 [facility] RockwallLymphocytes (%) (Auto)2018-07-13 16:28:00 * Test Item Value Reference Range Interpretation Comments Lymphocytes (%) (Auto) (test code = 736-9) 22.2 18.0-39.1 [facility]wallMonocytes (%) (Auto)2018-07-13 16:28:00* Test Item Value Reference Range Interpretation Comments Monocytes (%) (Auto) (test code = 5905-5) 9.3 4.4-11.3 [facility]wallEosinophils (%) (Auto)2018-07-13 16:28:00 * Test Item Value Reference Range Interpretation Comments Eosinophils (%) (Auto) (test code = 713-8) 2.2 0.0-6.0 [facility]wallBasophils (%) (Auto)2018-07-13 16:28:00* Test Item Value Reference Range Interpretation Comments Basophils (%) (Auto) (test code = 706-2) 1.0 0.0-1.0 [facility] RockwallIM GRANULOCYTES %2018-07-13 16:28:00* Test Item Value Reference Range Interpretation Comments IM GRANULOCYTES % (test code = IM GRANULOCYTES %) 1.0 0.0- 1.0 [facility]wallNeutrophils # (Auto)2018-07-13 16:28:00* Test Item Value Reference Range Interpretation Comments Neutrophils # (Auto) (test code = 751-8) 4.3 2.1-6.9 [facility]wallLymphocytes # (Auto)2018-07-13 16:28:00* Test Item Value Reference Range Interpretation Comments Lymphocytes # (Auto) (test code = 01250-2) 1.5 1.0-3.2 [facility]wallMonocytes # (Auto)2018-07-13 16:28:00* Test Item Value Reference Range Interpretation Comments Monocytes # (Auto) (test code = 742-7) 0.6 0.2-0.8 [facility]wallEosinophils # (Auto)2018-07-13 16:28:00* Test Item Value Reference Range Interpretation Comments Eosinophils # (Auto) (test code = 711-2) 0.2 0.0-0.4 [facility]wallBasophils # (Auto)2018-07-13 16:28:00* Test Item Value Reference Range Interpretation Comments Basophils # (Auto) (test code = 704-7) 0.1 0.0-0.1 [facility] RockwallAbsolute Immature Granulocyte (auto 2018-07-13 16:28:00* Test Item Value Reference Range Interpretation Comments Absolute Immature Granulocyte (auto (mimi t code = Absolute Immature Granulocyte (auto) 0.07 0-0.1 [facility]wallWhite Blood Qlhqe3857-43-97 16:28:00* Test Item Value Reference Range Interpretation Comments White Blood Count (test code = 6690-2) 6.75 4.8-10.8 [facility] RockwallRed Blood Lcfpx1470-24-81 16:28:00* Test Item Value Reference Range Interpretation Comments Red Blood Count (test code = 789-8) 3.88 3.6-5.1 [facility]wallHemoglobin2019-01-22 16:28:00* Test Item Value Reference Range Interpretation Comments Hemoglobin (test code = 88060-3) 12.1 12.0-16.0 [facility]wallHematocrit2019-01-22 16:28:00* Test Item Value Reference Range Interpretation Comments Hematocrit (test code = 4544-3) 37.8 34.2-44.1 [facility]wallMean Corpuscular Qgdhkd6308-76-06 16:28:00* Test Item Value Reference Range Interpretation Comments Mean Corpuscular Volume (test code = 787-2) 97.4 81-99 [facility]wallMean Corpuscular Olnftjultv5546-11-63 16:28:00* Test Item Value Reference Range Interpretation Comments Mean Corpuscular Hemoglobin (test code = 785-6) 31.2 28-32 [facility]wallMean Corpuscular Hemoglobin Concent 2018-07-13 16:28:00* Test Item Value Reference Range Interpretation Comments Mean Corpuscular Hemoglobin Concent (test code = 786-4) 32.0 31-35 [facility] RockwallRed Cell Distribution Zmwzf6954-96-86 16:28:00* Test Item Value Reference Range Interpretation Comments Red Cell Distribution Width (test code = 33565-7) 13.5 11.7 -14.4 [facility] RockwallPlatelet Vluum2869-60-09 16:28:00* Test Item Value Reference Range Interpretation Comments Platelet Count (test code = 777-3) 267 140-360 [facility] RockwallNeutrophils (%) (Auto)2018-07-13 16:28:00 * Test Item Value Reference Range Interpretation Comments Neutrophils (%) (Auto) (test code = 48818-6) 64.3 38.7-80.0 [facility]wallLymphocytes (%) (Auto)2018-07-13 16:28:00 * Test Item Value Reference Range Interpretation Comments Lymphocytes (%) (Auto) (test code = 736-9) 22.2 18.0-39.1 [facility]wallMonocytes (%) (Auto)2018-07-13 16:28:00* Test Item Value Reference Range Interpretation Comments Monocytes (%) (Auto) (test code = 5905-5) 9.3 4.4-11.3 [facility]wallEosinophils (%) (Auto)2018-07-13 16:28:00 * Test Item Value Reference Range Interpretation Comments Eosinophils (%) (Auto) (test code = 713-8) 2.2 0.0-6.0 [facility]wallBasophils (%) (Auto)2018-07-13 16:28:00* Test Item Value Reference Range Interpretation Comments Basophils (%) (Auto) (test code = 706-2) 1.0 0.0-1.0 [facility] RockwallIM GRANULOCYTES %2018-07-13 16:28:00* Test Item Value Reference Range Interpretation Comments IM GRANULOCYTES % (test code = IM GRANULOCYTES %) 1.0 0.0- 1.0 [facility]wallNeutrophils # (Auto)2018-07-13 16:28:00* Test Item Value Reference Range Interpretation Comments Neutrophils # (Auto) (test code = 751-8) 4.3 2.1-6.9 [facility]wallLymphocytes # (Auto)2018-07-13 16:28:00* Test Item Value Reference Range Interpretation Comments Lymphocytes # (Auto) (test code = 24349-6) 1.5 1.0-3.2 [facility]wallMonocytes # (Auto)2018-07-13 16:28:00* Test Item Value Reference Range Interpretation Comments Monocytes # (Auto) (test code = 742-7) 0.6 0.2-0.8 [facility]wallEosinophils # (Auto)2018-07-13 16:28:00* Test Item Value Reference Range Interpretation Comments Eosinophils # (Auto) (test code = 711-2) 0.2 0.0-0.4 [facility]wallBasophils # (Auto)2018-07-13 16:28:00* Test Item Value Reference Range Interpretation Comments Basophils # (Auto) (test code = 704-7) 0.1 0.0-0.1 [facility] RockwallAbsolute Immature Granulocyte (auto 2018-07-13 16:28:00* Test Item Value Reference Range Interpretation Comments Absolute Immature Granulocyte (auto (mimi t code = Absolute Immature Granulocyte (auto) 0.07 0-0.1 [facility] RockwallWhite Blood Ungfx9457-29-58 16:28:00* Test Item Value Reference Range Interpretation Comments White Blood Count (test code = 6690-2) 6.75 4.8-10.8 [facility] RockwallRed Blood Zutgw2088-93-27 16:28:00* Test Item Value Reference Range Interpretation Comments Red Blood Count (test code = 789-8) 3.88 3.6-5.1 [facility]wallHemoglobin2019-01-22 16:28:00* Test Item Value Reference Range Interpretation Comments Hemoglobin (test code = 31399-9) 12.1 12.0-16.0 [facility]wallHematocrit2019-01-22 16:28:00* Test Item Value Reference Range Interpretation Comments Hematocrit (test code = 4544-3) 37.8 34.2-44.1 [facility]wallMean Corpuscular Gwwdph7789-08-32 16:28:00* Test Item Value Reference Range Interpretation Comments Mean Corpuscular Volume (test code = 787-2) 97.4 81-99 [facility]wallMean Corpuscular Juydbfkcue2620-49-95 16:28:00* Test Item Value Reference Range Interpretation Comments Mean Corpuscular Hemoglobin (test code = 785-6) 31.2 28-32 [facility]wallMean Corpuscular Hemoglobin Concent 2018-07-13 16:28:00* Test Item Value Reference Range Interpretation Comments Mean Corpuscular Hemoglobin Concent (test code = 786-4) 32.0 31-35 [facility] RockwallRed Cell Distribution Bjkul9625-61-46 16:28:00* Test Item Value Reference Range Interpretation Comments Red Cell Distribution Width (test code = 64836-4) 13.5 11.7 -14.4 [facility] RockwallPlatelet Zuwya4620-46-27 16:28:00* Test Item Value Reference Range Interpretation Comments Platelet Count (test code = 777-3) 267 140-360 [facility]wallNeutrophils (%) (Auto)2018-07-13 16:28:00 * Test Item Value Reference Range Interpretation Comments Neutrophils (%) (Auto) (test code = 40912-8) 64.3 38.7-80.0 [facility]wallLymphocytes (%) (Auto)2018-07-13 16:28:00 * Test Item Value Reference Range Interpretation Comments Lymphocytes (%) (Auto) (test code = 736-9) 22.2 18.0-39.1 [facility]wallMonocytes (%) (Auto)2018-07-13 16:28:00* Test Item Value Reference Range Interpretation Comments Monocytes (%) (Auto) (test code = 5905-5) 9.3 4.4-11.3 [facility]wallEosinophils (%) (Auto)2018-07-13 16:28:00 * Test Item Value Reference Range Interpretation Comments Eosinophils (%) (Auto) (test code = 713-8) 2.2 0.0-6.0 [facility]wallBasophils (%) (Auto)2018-07-13 16:28:00* Test Item Value Reference Range Interpretation Comments Basophils (%) (Auto) (test code = 706-2) 1.0 0.0-1.0 [facility]wallIM GRANULOCYTES %2018-07-13 16:28:00* Test Item Value Reference Range Interpretation Comments IM GRANULOCYTES % (test code = IM GRANULOCYTES %) 1.0 0.0- 1.0 [facility]wallNeutrophils # (Auto)2018-07-13 16:28:00* Test Item Value Reference Range Interpretation Comments Neutrophils # (Auto) (test code = 751-8) 4.3 2.1-6.9 [facility]wallLymphocytes # (Auto)2018-07-13 16:28:00* Test Item Value Reference Range Interpretation Comments Lymphocytes # (Auto) (test code = 15128-3) 1.5 1.0-3.2 [facility]wallMonocytes # (Auto)2018-07-13 16:28:00* Test Item Value Reference Range Interpretation Comments Monocytes # (Auto) (test code = 742-7) 0.6 0.2-0.8 [facility]wallEosinophils # (Auto)2018-07-13 16:28:00* Test Item Value Reference Range Interpretation Comments Eosinophils # (Auto) (test code = 711-2) 0.2 0.0-0.4 [facility]wallBasophils # (Auto)2018-07-13 16:28:00* Test Item Value Reference Range Interpretation Comments Basophils # (Auto) (test code = 704-7) 0.1 0.0-0.1 [facility] RockwallAbsolute Immature Granulocyte (auto 2018-07-13 16:28:00* Test Item Value Reference Range Interpretation Comments Absolute Immature Granulocyte (auto (mimi t code = Absolute Immature Granulocyte (auto) 0.07 0-0.1 [facility] Blood [id number] 16:28:00* Test Item Value Reference Range Interpretation Comments White Blood Count (test code = 6690-2) 6.75 4.8-10.8 [facility] Blood [id number] 16:28:00* Test Item Value Reference Range Interpretation Comments Red Blood Count (test code = 789-8) 3.88 3.6-5.1 [facility]Hemoglobin2019-01-22 16:28:00* Test Item Value Reference Range Interpretation Comments Hemoglobin (test code = 81011-2) 12.1 12.0-16.0 [facility]ematocrit2019-01-22 16:28:00* Test Item Value Reference Range Interpretation Comments Hematocrit (test code = 4544-3) 37.8 34.2-44.1 [facility]Mean Corpuscular [id number] 16:28:00* Test Item Value Reference Range Interpretation Comments Mean Corpuscular Volume (test code = 787-2) 97.4 81-99 [facility] Corpuscular [id number] 16:28:00* Test Item Value Reference Range Interpretation Comments Mean Corpuscular Hemoglobin (test code = 785-6) 31.2 28-32 [facility] Corpuscular Hemoglobin Concent 2018-07-13 16:28:00* Test Item Value Reference Range Interpretation Comments Mean Corpuscular Hemoglobin Concent (test code = 786-4) 32.0 31-35 [facility]wallRed Cell Distribution [id number] 16:28:00* Test Item Value Reference Range Interpretation Comments Red Cell Distribution Width (test code = 81633-9) 13.5 11.7 -14.4 [facility]wallPlatelet [id number] 16:28:00* Test Item Value Reference Range Interpretation Comments Platelet Count (test code = 777-3) 267 140-360 [facility]wallNeutrophils (%) (Auto)2018-07-13 16:28:00 * Test Item Value Reference Range Interpretation Comments Neutrophils (%) (Auto) (test code = 77880-7) 64.3 38.7-80.0 [facility]wallLymphocytes (%) (Auto)2018-07-13 16:28:00 * Test Item Value Reference Range Interpretation Comments Lymphocytes (%) (Auto) (test code = 736-9) 22.2 18.0-39.1 [facility]wall[facility]ocytes (%) (Auto)2018-07-13 16:28:00* Test Item Value Reference Range Interpretation Comments Monocytes (%) (Auto) (test code = 5905-5) 9.3 4.4-11.3 [facility]Eosinophils (%) (Auto)2018-07-13 16:28:00 * Test Item Value Reference Range Interpretation Comments Eosinophils (%) (Auto) (test code = 713-8) 2.2 0.0-6.0 [facility]ophils (%) (Auto)2018-07-13 16:28:00* Test Item Value Reference Range Interpretation Comments Basophils (%) (Auto) (test code = 706-2) 1.0 0.0-1.0 [facility]wallIM GRANULOCYTES %2018-07-13 16:28:00* Test Item Value Reference Range Interpretation Comments IM GRANULOCYTES % (test code = IM GRANULOCYTES %) 1.0 0.0- 1.0 [facility]Neutrophils # (Auto)2018-07-13 16:28:00* Test Item Value Reference Range Interpretation Comments Neutrophils # (Auto) (test code = 751-8) 4.3 2.1-6.9 [facility]wallLymphocytes # (Auto)2018-07-13 16:28:00* Test Item Value Reference Range Interpretation Comments Lymphocytes # (Auto) (test code = 96558-7) 1.5 1.0-3.2 [facility]wallMonocytes # (Auto)2018-07-13 16:28:00* Test Item Value Reference Range Interpretation Comments Monocytes # (Auto) (test code = 742-7) 0.6 0.2-0.8 [facility]Eosinophils # (Auto)2018-07-13 16:28:00* Test Item Value Reference Range Interpretation Comments Eosinophils # (Auto) (test code = 711-2) 0.2 0.0-0.4 [facility]Basophils # (Auto)2018-07-13 16:28:00* Test Item Value Reference Range Interpretation Comments Basophils # (Auto) (test code = 704-7) 0.1 0.0-0.1 [facility]wallAbsolute Immature Granulocyte (auto 2018-07-13 16:28:00* Test Item Value Reference Range Interpretation Comments Absolute Immature Granulocyte (auto (mimi t code = Absolute Immature Granulocyte (auto) 0.07 0-0.1 [facility]
[2020-01-20] MEDS: ATORVASTATIN 40 MG TAB PO SCH (21:11)
[2020-01-21 04:59] VITALS: BP 128/60
[2020-01-21] MEDS: PIPERACILLIN/TAZO 2.25 GM 50 ML IV SCH ×4 (06:10→23:03)
[2020-01-21 06:15] LABS: BASOPHILS # (AUTO) 0.1 (0.0-0.1); BASOPHILS % 0.3 % (0.0-1.0); HEMATOCRIT 33.8 % (34.2-44.1); HEMOGLOBIN 10.5 g/dL (12.0-16.0); LYMPHOCYTES # (AUTO) 0.5 (1.0-3.2); MEAN CORPUSCULAR HEMOGLOBIN 28.2 pg (28-32); MEAN CORPUSCULAR HGB CONC 31.1 g/dL (31-35); MEAN CORPUSCULAR VOLUME 90.6 fL (81-99); MONOCYTES # (AUTO) 1.2 (0.2-0.8); MONOCYTES % 6.8 % (4.4-11.3); NEUTROPHILS # (AUTO) 16.2 (2.1-6.9); NEUTROPHILS % 88.7 % (38.7-80.0); PLATELET COUNT 130 x10e3/uL (140-360); RED BLOOD COUNT 3.73 x10e6/uL (3.6-5.1); RED CELL DISTRIBUTION WIDTH 14.9 % (11.7-14.4)
[2020-01-21 06:44] LABS: ANION GAP 16.9 mmol/L (8-16); CALCIUM 7.8 mg/dL (8.4-10.2); CREATININE, SERUM 3.37 mg/dL (0.57-1.11); POTASSIUM 3.9 mmol/L (3.5-5.1)
[2020-01-21] MEDS ORDERED: INSULIN GLARGINE 100 UNITS/ML VIAL SQ SCH (07:30)
[2020-01-21 08:00] VITALS: BP 137/77
[2020-01-21] MEDS: INSULIN LISPRO 100 UNIT/1 ML 3ML VIAL SQ SCH ×5 (10:27→21:24)
[2020-01-21] MEDS: INSULIN GLARGINE 100 UNITS/ML VIAL SQ SCH (10:27)
[2020-01-21] MEDS: HYDRALAZINE HCL 25 MG TAB PO SCH ×3 (10:28→21:00)
[2020-01-21] MEDS: CARVEDILOL 12.5 MG TAB PO SCH ×2 (10:29→17:41)
[2020-01-21] MEDS: CHOLECALCIFEROL 1,000 UNIT TAB PO SCH (10:30)
[2020-01-21] MEDS: SODIUM BICARBONATE 650 MG TAB PO SCH (10:30)
[2020-01-21] MEDS: VENLAFAXINE HCL 75 MG CAPCR PO SCH (10:30)
--- NOTE | 2020-01-21 11:49 | Diagnostic Imaging Report ---
EXAMINATION: CHEST SINGLE (PORTABLE) INDICATION: Dyspnea. COMPARISON: Multiple prior chest x-rays including most recent on 01/20/2020. FINDINGS: TUBES and LINES: None. LUNGS: No significant interval change in right greater than left patchy opacities, moderately inflated lungs with perihilar fullness and indistinctness of the pulmonary vasculature. PLEURA: No pleural effusion or pneumothorax. HEART AND MEDIASTINUM: The cardiomediastinal silhouette is unremarkable. Atherosclerotic calcification of the thoracic aorta. BONES AND SOFT TISSUES: No acute osseous or soft tissue abnormality. UPPER ABDOMEN: No free air under the diaphragm. IMPRESSION: No significant interval change in moderately inflated lungs with perihilar fullness, indistinctness of the pulmonary vasculature and right greater than left patchy opacities. Signed by: Grupo Mcghee MD on 01/21/2020 11:46 AM
[2020-01-21 12:00] VITALS: BP 128/54
--- NOTE | 2020-01-21 12:03 | Progress Note ---
DATE: 01/21/2020 Nephrology Followup Note SUBJECTIVE: The patient did not appear to be in any acute distress. The patient I's and O's were 1550 in and 900 out. OBJECTIVE: VITAL SIGNS: Blood pressure 128/60, respirations 24, heart rate 80, and temperature 98.3. EXTREMITIES: No significant edema. GENERAL: The patient was resting. LABORATORY DATA: White cell count was 18.2, hemoglobin 10.5, hematocrit 33.8, and platelets 130. Sodium 133, potassium 3.9, chloride 95, CO2 of 25, BUN 63, and creatinine 3.37, it was 2.5 yesterday and 2.2 the day before. IMPRESSION: 1. Acute kidney injury on chronic kidney disease with increasing serum creatinine, but nonoliguric with stable electrolytes and metabolic profile. No evidence of volume overload clinically. 2. Possible pneumonia. PLAN: Strict I's and O's. No nonsteroidal anti-inflammatory drugs, MAJOR inhibitors, IV dye, ARB. UA, spot urine sodium and creatinine. CBC and BMP in a.m. No acute indication for dialysis at the present time, but I will be following the patient closely. Further recommendations to follow. Maurizio Gibbs MD SA/SHELLY /[id number]
[2020-01-21] MEDS: ACETAMINOPHEN 650 MG SUPP PR PRN (13:14)
[2020-01-21] MEDS: AZITHROMYCIN 500MG/NS 250 ML 250 ML IV SCH (13:16)
--- NOTE | 2020-01-21 15:56 | NUR ---
Dr Toro called to consult pt @ 1215. 01/21/20 . order given by Dr Scales. DR Scales called DR Toro as well . house painting instructor notified .
--- NOTE | 2020-01-21 16:00 | NUR ---
1600 . no call back from DR Toro yet .
[2020-01-21 16:27] LABS: BILIRUBIN,URINE SMALL (NEGATIVE); CLARITY,URINE HAZY (CLEAR); COLOR,URINE AMBER (YELLOW); KETONES,URINE TRACE (NEGATIVE); LEUKOCYTE ESTERASE ,URINE TRACE (NEGATIVE); NITRITE,URINE NEGATIVE (NEGATIVE); PROTEIN,URINE DIPSTICK >=300 (NEGATIVE); URINE UROBILINOGEN 1 mg/dL (0.2 - 1)
[2020-01-21 16:28] LABS: AMORPHOUS SEDIMENT,URINE FEW (FEW); BACTERIA,URINE FEW /HPF; EPITHELIAL CELLS,URINE FEW /LPF; RBC,URINE >50 /HPF (0-5)
[2020-01-21 16:45] LABS: CREATININE,URINE RANDOM 145.18 mg/dL (47-110); SODIUM,URINE 35 mmol/L
[2020-01-21 17:37] VITALS: BP 120/65
--- NOTE | 2020-01-21 18:47 | NUR ---
1845 01/21/2020 no call back from consulted DR Toro.
[2020-01-21] MEDS: ATORVASTATIN 40 MG TAB PO SCH (20:58)
[2020-01-21 21:36] VITALS: BP 107/64
[2020-01-21 21:38] VITALS: BP 107/64
[2020-01-22 00:07] VITALS: BP 102/70
[2020-01-22 04:02] VITALS: BP 112/60
[2020-01-22] MEDS: PIPERACILLIN/TAZO 2.25 GM 50 ML IV SCH (05:46)
[2020-01-22 06:17] LABS: BASOPHILS # (AUTO) 0.1 (0.0-0.1); BASOPHILS % 0.4 % (0.0-1.0); HEMATOCRIT 31.6 % (34.2-44.1); HEMOGLOBIN 10.2 g/dL (12.0-16.0); LYMPHOCYTES # (AUTO) 0.7 (1.0-3.2); LYMPHOCYTES % 4.8 % (18.0-39.1); MEAN CORPUSCULAR HEMOGLOBIN 29.8 pg (28-32); MEAN CORPUSCULAR HGB CONC 32.3 g/dL (31-35); MEAN CORPUSCULAR VOLUME 92.4 fL (81-99); MONOCYTES # (AUTO) 1.2 (0.2-0.8); MONOCYTES % 8.6 % (4.4-11.3); NEUTROPHILS # (AUTO) 12.1 (2.1-6.9); NEUTROPHILS % 85.4 % (38.7-80.0); PLATELET COUNT 95 x10e3/uL (140-360); RED BLOOD COUNT 3.42 x10e6/uL (3.6-5.1); RED CELL DISTRIBUTION WIDTH 14.9 % (11.7-14.4)
[2020-01-22 06:47] LABS: ANION GAP 17.6 mmol/L (8-16); CALCIUM 7.6 mg/dL (8.4-10.2); CREATININE, SERUM 4.41 mg/dL (0.57-1.11); POTASSIUM 3.6 mmol/L (3.5-5.1)
[2020-01-22] MEDS ORDERED: INSULIN GLARGINE 100 UNITS/ML VIAL SQ SCH (07:30)
[2020-01-22] MEDS ORDERED: PIPER-TAZ 3.375 GM 50 ML IV SCH (09:00)
[2020-01-22] MEDS: HYDRALAZINE HCL 25 MG TAB PO SCH (09:20)
[2020-01-22] MEDS: VENLAFAXINE HCL 75 MG CAPCR PO SCH (09:21)
[2020-01-22] MEDS: CARVEDILOL 12.5 MG TAB PO SCH ×2 (09:21→17:05)
[2020-01-22] MEDS: SODIUM BICARBONATE 650 MG TAB PO SCH (09:21)
[2020-01-22] MEDS: CHOLECALCIFEROL 1,000 UNIT TAB PO SCH (09:21)
[2020-01-22] MEDS: INSULIN LISPRO 100 UNIT/1 ML 3ML VIAL SQ SCH ×7 (09:23→21:00)
--- NOTE | 2020-01-22 09:32 | Consultation ---
DATE OF CONSULTATION: 01/19/2020 The patient admitted for Dr. Scales on the 18 of January, seen in consultation on the 18 of January. HISTORY OF PRESENT ILLNESS: This 89-year-old patient was kindly referred by Dr. Scales for evaluation of syncope, falling, and vertebral fracture. Ms. Stewart was transferred from the emergency room in [place], where she was seen earlier complaining of back pain and flank pain. The patient arrived there in a wheelchair and was then transferred by ambulance to the hospital. When I was seeing the patient, she was just starting having an acute respiratory insufficiency and the rapid response team has just arrived. EKG, chest x-ray, arterial blood gases have been ordered. The patient was given 40 mg of Lasix IV and started on rebreathing ventilation with 100% FiO2. At the moment, the patient is gasping for air. She is poorly responding and unable to give any history or information and all the history has been obtained by verbal information and reviewing the patient's records from the emergency room in [place]. The patient has been falling lately and has been complaining of neck pain and lumbar pain and since she had been in the hospital, she had a CT scan of the brain, which did not show any hemorrhage or acute stroke. MRI of the cervical spine was obtained, which showed a possible acute fracture with some edema of the marrow as described by the radiologist. She also had an MRI of the thoracic and lumbar spine showing compression fractures of the severe degenerative joint disease and mild to moderately severe foraminal stenotic areas since status post laminectomy at L3 and L4. PAST MEDICAL HISTORY: Reveals that she had hysterectomy, a laminectomy. Previous cardiac catheterization was performed by myself, which shows [id number] calcific coronary atherosclerotic obstructions as well as severe calcific aortic stenosis and insufficiency. The patient's calluses reveal codeine, morphine, and hydrocodone. The patient's past medical history reveals that she has insulin-dependent diabetes mellitus, chronic kidney disease, coronary artery disease, aortic stenosis insufficiency, cerebral vascular insufficiency with carotid artery stenosis and hypertensive cardiovascular disease. She also has been treated by Dr. Scales for iron deficiency anemia. FAMILY HISTORY: Noncontributory. SOCIAL HISTORY: Negative. PHYSICAL EXAMINATION: VITAL SIGNS: Blood pressure 148/98, is 94%. Carotid pulses are present with bilateral bruits. CHEST: Reveals bilateral rales with decreased breath sounds. CARDIOVASCULAR SYSTEM: Normal apical impulse. The rhythm is regular. The heart rate is 126 per minute. There is no S3. There is no rub. First and second heart sounds are normal. There is a systolic ejection murmur 2/6 over the precordium. ABDOMEN: Soft. There is no tenderness. No organomegaly. EXTREMITIES: Pulses are diminished. There is no peripheral edema. The patient's skin and integument is showing some clammy limbs. NEUROLOGIC: Examination cannot be accurately assessed. However, the patient is moving all four extremities. The chest x-ray was just completed and shows pulmonary edema and possible right lower lobe infiltrate with cardiomegaly, calcification of the aortic knob and bilateral pulmonary venous congestion. Electrocardiogram shows sinus tachycardia and left bundle branch block, which is chronic. Review of the patient's laboratory data show an elevated white count. There is some mild anemia. The chemistry shows hyponatremia. Potassium prior to transfer was 5.5 and is now recorded was 6.2, the creatinine was 1.7 prior to arrival and lies 2.22, indicating progressive renal insufficiency. IMPRESSION: 1. Hypertensive and coronary atherosclerotic heart disease with acute congestive heart failure. 2. Acute kidney injury on chronic kidney disease. 3. Possible right lower lobe infiltrate. 4. Carotid stenosis. 5. Possible cervical fracture with severe degenerative joint disease of the entire spine and lumbar foraminal stenotic areas with status post laminectomy and history of falling. 6. Insulin-dependent diabetes mellitus. 7. Iron deficiency anemia. I agree with the administration of the Lasix and respiratory assistance with supplemental oxygen and arrangement for transfer to the [facility]. I would recommend to repeat the patient's ABGs and follow up on the BMP in particular since the progressive hyperkalemia. The patient is to followup chest x-ray. The patient's cardiac enzymes are normal, but need to follow up on the cardiac enzymes. Recommend an echocardiogram. Continue insulin, hydralazine and labetalol. The patient also will be taken care of by nurse wound care, Dr. Moncada and the dispute resolution specialist, Dr. Montgomery. I will follow the patient's cardiac status and Dr. Peña and Dr. Berumen will also be in assistance for the patient's respiratory insufficiency and possible pneumonitis. Thank you very much for letting me to see this very nice patient. MD BECCA Dangelo/SHELLY /[id number]
--- NOTE | 2020-01-22 09:43 | Diagnostic Imaging Report ---
EXAMINATION: CHEST SINGLE (PORTABLE) INDICATION: Dyspnea COMPARISON: Multiple prior x-rays including most recent on 01/21/2020. FINDINGS: TUBES and LINES: None. LUNGS: Moderately inflated lungs with perihilar fullness indistinctness of the pulmonary vasculature persists. No significant interval change in right greater than left patchy opacities. PLEURA: No pleural effusion or pneumothorax. HEART AND MEDIASTINUM: The cardiomediastinal silhouette is unremarkable. Atherosclerotic calcification of the thoracic aorta. BONES AND SOFT TISSUES: No acute osseous or soft tissue findings. Redemonstration of displaced left clavicle fracture. UPPER ABDOMEN: No free air under the diaphragm. IMPRESSION: 1. No significant interval change in multifocal patchy airspace opacities, right greater than left. 2. Stable displaced left clavicle fracture. Signed by: Grupo Mcghee MD on 01/22/2020 9:39 AM
[2020-01-22] MEDS ORDERED: SODIUM CHLORIDE 0.9% 250ML 250 ML ONE (09:51)
[2020-01-22] MEDS: CEFEPIME 1GM/NS 0.9% 50 ML 50 ML IV SCH (10:27)
[2020-01-22 10:28] VITALS: BP 105/45
[2020-01-22] MEDS: AZITHROMYCIN 500MG/NS 250 ML 250 ML IV SCH (12:59)
[2020-01-22] MEDS: ACETAMINOPHEN 650 MG SUPP PR PRN ×3 (15:00→21:28)
[2020-01-22] MEDS: ATORVASTATIN 40 MG TAB PO SCH (17:05)
[2020-01-22 17:11] VITALS: BP 112/69
--- NOTE | 2020-01-22 17:29 | Consultation ---
DATE OF CONSULTATION: 01/22/2020 ID Consultation Note REASON FOR CONSULTATION: Suspected COVID and elevated WBC. Thank you, Dr. Scales, for asking me to see this patient. HISTORY OF PRESENT ILLNESS: The patient is an 89-year-old woman, who was referred for suspected COVID and elevated WBC. The patient was admitted on 01/19/2020 with back pain following a fall. The patient also has had shortness of breath and respiratory distress. She did not have fever at home, but spiked episodes of elevated temperature after admission. Also, she denies nausea, vomiting, diarrhea, and generalized body aches. MRI of the cervical, thoracic, and lumbar spine showed T7 compression fracture and multilevel degenerative joint disease. Chest x-ray showed bilateral infiltrates, right greater than left. SARS-CoV2 PCR was negative. The patient lives with at home and denies known COVID exposure. However, she has had visits by a grandson and the occasionally ventures outside, although she could not state specifically where. PAST MEDICAL HISTORY: Diabetes mellitus type 2, hypertension, hyperlipidemia, congestive heart failure, chronic kidney disease, and iron deficiency. PAST SURGICAL HISTORY: Tonsillectomy and adenoidectomy, appendectomy, total hysterectomy, L3-L4 laminectomy, and the left arm ORIF. ALLERGIES: MULTIPLE INCLUDING SEPTRA, "MYCIN," MULTIPLE NARCOTICS AND VIOXX. MEDICATIONS: See MAR. Current antibiotics are Zosyn 2.25 g IV piggyback q.6 hours and azithromycin 500 mg IV piggyback q.24 hours. Patient received vancomycin 1 g IV piggyback on 01/21/2020. FAMILY HISTORY: Noncontributory. SOCIAL HISTORY: No alcohol or tobacco use. REVIEW OF SYSTEMS: As per history of present illness. The patient reports improved breathing. She is currently off BiPAP and comfortable on 4 L of oxygen by nasal cannula. She still has pain, but cannot take narcotics due to allergies. PHYSICAL EXAMINATION: GENERAL: No acute distress. VITAL SIGNS: T-max 99, pulse rate 79, respiratory rate 20, and blood pressure 102/60. Weight 217 pounds. HEENT: Normocephalic and atraumatic. There is no icterus or injection of conjunctiva. There is no ear or nasal discharge. There is dry oral mucosa. No pharyngeal erythema or exudate. NECK: Supple. No distention of external jugular veins. LUNGS: Decreased breath sounds bilaterally. HEART: Normal S1 and S2. Regular. ABDOMEN: Soft, nontender. EXTREMITIES: No edema, clubbing, or cyanosis. SKIN: No acute erythema. FILM OR TAPE LIBRARIAN: Awake, alert, oriented to person, place, and time. Nonfocal. LABORATORY AND DIAGNOSTICS: WBC 14,130, down from 18,200 yesterday; hemoglobin 10.2, platelet 95,000, neutrophils 85.4, lymphocytes 4.8, monocytes 8.6, eosinophils 0, basophils 0.4. BUN 92, creatinine 4.4. Blood glucose 225. 01/21/2020 urinalysis was abnormal. Blood culture is pending. Question of status of urine culture. IMPRESSION: 1. Pneumonia from suspected coronavirus disease-19, although community-acquired pneumonia cannot be excluded. 2. Hyperglycemia due to diabetes mellitus type 2. 3. Acute kidney injury on chronic kidney disease. PLAN: 1. Change Zosyn to cefepime 1 g IV piggyback q.24 hours in view of worsening thrombocytopenia. Question utility of steroid: The patient's breathing is better without steroid and there is risk of worse glycemic control. 2. Avoid over-diureses and nephrotoxic agents. 3. Glycemic control per Endocrinology service. 4. Check procalcitonin. Antibiotics may be stopped if procalcitonin is normal and cultures are negative. MD BRICE Way/SHELLY /[id number]
--- NOTE | 2020-01-22 19:10 | NUR ---
RECEIVED REPORT FROM PREVIOUS NURSE. CALL LIGHT WITHIN REACH. PATIENT IN BED AND WHINING IN PAIN.
[2020-01-22 20:00] VITALS: BP 115/58
[2020-01-22 20:39] VITALS: BP 115/58
--- NOTE | 2020-01-22 22:10 | NUR ---
PATIENT REQUESTED TO HAVE BIPAP SO RESPIRATORY WAS CALLED AND PATIENT WAS PLACED ON BIPAP. PATIENT THEN TELL DR. MILLER SHE DOES NOT WANT THE BIPAP SO SHE WAS PUT ON 2L NC
--- NOTE | 2020-01-22 23:52 | NUR ---
RECEIVED REPORT FROM PREVIOUS NURSE. CALL LIGHT WITHIN REACH. PATIENT IN BED Addendum: 01/22/20 at 8023 by Tamara Youngblood RN TIME WAS 1909
[2020-01-23] VITALS (8 sets, daily range): BP systolic 105–125; BP diastolic 42–75
--- NOTE | 2020-01-23 00:10 | NUR ---
FRANCO CARE PERFORMED
[2020-01-23] MEDS: ACETAMINOPHEN 650 MG SUPP PR PRN ×3 (03:47→16:42)
[2020-01-23] MEDS: INSULIN GLARGINE 100 UNITS/ML VIAL SQ SCH (07:30)
[2020-01-23] MEDS: INSULIN LISPRO 100 UNIT/1 ML 3ML VIAL SQ SCH ×7 (07:30→19:42)
--- NOTE | 2020-01-23 07:44 | NUR ---
GAVE BEDSIDE SHIFT REPORT TO ONCOMING NURSE. CALL LIGHT WITHIN REACH. PATIENT IN BED.
[2020-01-23] MEDS: CARVEDILOL 12.5 MG TAB PO SCH ×2 (08:15→18:20)
[2020-01-23] MEDS: CHOLECALCIFEROL 1,000 UNIT TAB PO SCH (08:16)
[2020-01-23] MEDS: SODIUM BICARBONATE 650 MG TAB PO SCH (08:16)
[2020-01-23] MEDS: CEFEPIME 1GM/NS 0.9% 50 ML 50 ML IV SCH (08:16)
[2020-01-23] MEDS: VENLAFAXINE HCL 75 MG CAPCR PO SCH (08:16)
[2020-01-23] MEDS ORDERED: SODIUM CHLORIDE 0.9% 250ML 250 ML ONE (10:29)
[2020-01-23] MEDS: DEXTROSE 5%/0.45% SOD CHL 1,000 ML IV SCH (10:52)
--- NOTE | 2020-01-23 11:47 | Diagnostic Imaging Report ---
EXAM: Renal Ultrasound INDICATION: Acute kidney injury COMPARISON: None TECHNIQUE: Transverse and longitudinal images of the kidneys and bladder were obtained. FINDINGS: Right Kidney: Length: 9.6 cm Appearance: Normal echogenicity. Collecting system: No hydronephrosis Stones: None Cyst/Mass: None Left Kidney: Length: 9.4 cm Appearance: Normal echogenicity. Collecting system: No hydronephrosis Stones: None Cyst/Mass: None Bladder: Bladder is decompressed with indwelling Damon and not well visualized. IMPRESSION: No hydronephrosis or renal calculi. Signed by: Quan Muniz MD on 01/23/2020 11:44 AM
[2020-01-23] MEDS: AZITHROMYCIN 500MG/NS 250 ML 250 ML IV SCH (13:17)
--- NOTE | 2020-01-23 17:35 | NUR ---
Verbal order given by Dr. Scales to give Hydromorphone 0.25 mg IV, Q6 PRN.
[2020-01-23] MEDS: HYDROMORPHONE 1MG/1ML INJ IV PRN (18:20)
[2020-01-23] MEDS: ATORVASTATIN 40 MG TAB PO SCH (21:47)
[2020-01-24] VITALS (8 sets, daily range): BP systolic 103–141; BP diastolic 42–52
[2020-01-24] MEDS: DEXTROSE 5%/0.45% SOD CHL 1,000 ML IV SCH ×4 (04:27→23:00)
[2020-01-24 05:28] LABS: ALBUMIN 2.3 g/dL (3.5-5.0); ALBUMIN/GLOBULIN RATIO 0.6 (0.8-2.0); ANION GAP 19.2 mmol/L (8-16); CREATININE, SERUM 5.66 mg/dL (0.57-1.11); POTASSIUM 4.2 mmol/L (3.5-5.1)
[2020-01-24] MEDS: INSULIN LISPRO 100 UNIT/1 ML 3ML VIAL SQ SCH ×7 (07:30→21:30)
[2020-01-24] MEDS: INSULIN GLARGINE 100 UNITS/ML VIAL SQ SCH (07:30)
[2020-01-24] MEDS: CARVEDILOL 12.5 MG TAB PO SCH ×2 (08:51→17:43)
[2020-01-24] MEDS: VENLAFAXINE HCL 75 MG CAPCR PO SCH (08:52)
[2020-01-24] MEDS: CEFEPIME 1GM/NS 0.9% 50 ML 50 ML IV SCH (08:52)
[2020-01-24] MEDS: SODIUM BICARBONATE 650 MG TAB PO SCH (08:52)
[2020-01-24] MEDS: CHOLECALCIFEROL 1,000 UNIT TAB PO SCH (08:52)
[2020-01-24] MEDS: ACETAMINOPHEN 650 MG SUPP PR PRN (09:16)
[2020-01-24] MEDS: HYDROMORPHONE 1MG/1ML INJ IV PRN ×5 (10:52→23:10)
[2020-01-24] MEDS: AZITHROMYCIN 500MG/NS 250 ML 250 ML IV SCH (13:12)
[2020-01-24] MEDS: ACETAMINOPHEN 325 MG TAB PO PRN (17:34)
--- NOTE | 2020-01-24 19:43 | NUR ---
Spoke with Leonid in [facility] dialysis regarding HD order for tomorrow.
[2020-01-24] MEDS: ATORVASTATIN 40 MG TAB PO SCH (21:30)
--- NOTE | 2020-01-24 22:56 | NUR ---
Spoke with Dr Scales regarding patient c/o pain 03/31 and yelling out. Dilaudid 0.25 mg IVP given at 2004 and not available and tylenol given 1734, not available. New order for dilaudid 0.25 mg IVP give Q 3hrs PRN pain.
[2020-01-25] VITALS (8 sets, daily range): BP systolic 126–154; BP diastolic 50–74
[2020-01-25] MEDS: HYDROMORPHONE 1MG/1ML INJ IV PRN ×5 (02:35→19:58)
[2020-01-25 05:32] LABS: ALBUMIN 2.5 g/dL (3.5-5.0); ALBUMIN/GLOBULIN RATIO 0.6 (0.8-2.0); CALCIUM 7.2 mg/dL (8.4-10.2); CREATININE, SERUM 5.71 mg/dL (0.57-1.11)
--- NOTE | 2020-01-25 07:10 | NUR ---
Bedside report and rounding completed with oncoming nurse. Patient in bed with call light within reach. No issues or concerns note.
[2020-01-25 08:16] LABS: INR 0.93; PROTHROMBIN TIME 12.9 seconds (11.9-14.5)
[2020-01-25] MEDS: SODIUM BICARBONATE 650 MG TAB PO SCH (09:13)
[2020-01-25] MEDS: CHOLECALCIFEROL 1,000 UNIT TAB PO SCH (09:13)
[2020-01-25] MEDS: CARVEDILOL 12.5 MG TAB PO SCH ×2 (09:13→16:14)
[2020-01-25] MEDS: VENLAFAXINE HCL 75 MG CAPCR PO SCH (09:13)
[2020-01-25] MEDS: CEFEPIME 1GM/NS 0.9% 50 ML 50 ML IV SCH (09:13)
[2020-01-25] MEDS: ACETAMINOPHEN 325 MG TAB PO PRN (09:25)
[2020-01-25] MEDS: INSULIN GLARGINE 100 UNITS/ML VIAL SQ SCH (10:07)
[2020-01-25] MEDS: INSULIN LISPRO 100 UNIT/1 ML 3ML VIAL SQ SCH ×7 (10:07→21:00)
[2020-01-25] MEDS ORDERED: HEPARIN SOD (PORCINE) 1000 UNIT/ML SDV ONE (10:35)
[2020-01-25] MEDS ORDERED: LIDOCAINE HCL 1% LOCAL INJ 20 ML VIAL ONE ×2 (10:41→10:50)
--- NOTE | 2020-01-25 10:56 | NUR ---
Patient left for dialysis tunneled catheter placement at 1050. Patient was stable. Addendum: 01/25/20 at 1228 by Sarah Galloway RN Patient returned with a right chest tunneled catheter. Dressing is bloody, this lead technical writer did fix the dressing. Patient alert x1, patient in and out of lethargic and moaning, as she has been all morning.
--- NOTE | 2020-01-25 12:07 | Diagnostic Imaging Report ---
PROCEDURE: Non-tunneled central venous catheter placement Procedural Personnel Attending physician(s): Quan Muniz MD Fellow physician(s): None Resident physician(s): None Advanced practice provider(s): None Pre-procedure diagnosis: Acute kidney injury Post-procedure diagnosis: Same Indication: Performance of hemodialysis Additional clinical history: None Complications: No immediate complications. IMPRESSION: Insertion of right-sided non-tunneled triple-lumen temporary dialysis catheter, with tip in the expected location of the SVC. Plan: The catheter may be used immediately. PROCEDURE SUMMARY: - Venous access with ultrasound guidance - Non-tunneled central venous catheter insertion with fluoroscopic guidance - Additional procedure(s): None PROCEDURE DETAILS: Pre-procedure Consent: Informed consent for the procedure including risks, benefits and alternatives was obtained and time-out was performed prior to the procedure. Preparation (MIPS): The site was prepared and draped using all elements of maximal sterile barrier technique including sterile gloves, sterile gown, cap, mask, large sterile sheet, sterile ultrasound probe cover, hand hygiene and cutaneous antisepsis with 2% chlorhexidine. Medical reason for site preparation exception (MIPS): Not applicable Anesthesia/sedation Level of anesthesia/sedation: No sedation Anesthesia/sedation administered by: Independent trained observer under attending supervision with continuous monitoring of the patient?s level of consciousness and physiologic status Total intra-service sedation time (minutes): NA Access Local anesthesia was administered. The vessel was sonographically evaluated and determined to be patent. Real time ultrasound was used to visualize needle entry into the vessel and a permanent image was stored. Vein accessed: Internal jugular vein Access technique: Micropuncture set with 21 gauge needle Catheter placement The access site was dilated and the catheter was placed into the vein over a wire under fluoroscopic guidance. The catheter tip location was fluoroscopically verified and a permanent image was stored.. A sterile dressing was applied. Catheter placed: Bard Trialysis Catheter size (Belarusian): 14 Catheter length (cm): 15 Catheter flush: Heparin (1000 units/mL) Catheter securement technique: Non-absorbable suture Contrast Contrast agent: None Contrast volume (mL): NA Radiation Dose Fluoroscopy time (minutes): 0.1 Reference air kerma (mGy): 1.1 Additional Details Additional description of procedure: None Equipment details: None Specimens removed: None Estimated blood loss (mL): Less than 10 Standardized report: [email or web address] Attestation Signer name: Quan Muniz MD I attest that I was present for the entire procedure. I reviewed the stored images and agree with the report as written. Signed by: Quan Muniz MD on 01/25/2020 12:04 PM
[2020-01-25] MEDS: AZITHROMYCIN 500MG/NS 250 ML 250 ML IV SCH (14:49)
--- NOTE | 2020-01-25 15:20 | NUR ---
director index visited with the pt. pt requiested director index to pray for her , director index provided hope building and prayer support , she expressed more calm and peace . chaplain Niecy
[2020-01-25] MEDS ORDERED: MANNITOL 25% 12.5GM/50 ML VIAL IV PRN (15:45)
[2020-01-25] MEDS ORDERED: SODIUM CHLORIDE 0.9% 1000ML 2,000 ML IV PRN (15:45)
[2020-01-25] MEDS ORDERED: HEPARIN SOD (PORCINE) 1000 UNIT/ML SDV IV PRN (15:45)
[2020-01-25] MEDS: DEXTROSE 5%/0.45% SOD CHL 1,000 ML IV SCH (16:14)
[2020-01-25] MEDS: FENTANYL 12MCG/HR PATCH TD SCH (17:33)
--- NOTE | 2020-01-25 18:02 | NUR ---
Nutrition Intervention Note RD Recommendation for Physician: - Continue current diet - Recommend Nepro BID for adequacy - BG and insulin management per MD Plan of Care: RD following, monitoring for tolerance and adequacy Nutrition reason for involvement: LOS Primary Diagnose(s): s/p fall due to syncopal episode PMH: HTN, CRF, HLD, DM Ht: 64 in Wt: 217 lb BMI: 37.2 kg/m2 IBW: [address] Assessment: 01/24: 89 YOF admitted for fall 2/2 syncopal episode. Pt evaluated today for LOS. Pt s/p HD catheter placement today with dialysis pending. Pt with decreased po intake, 10-25% meal intake since admit. No wt loss reported. Chart reviewed. Will continue to monitor. GI: LBM 01/22 Skin: no PU Labs: 01/24: Na 133, K 4, BUN 108, Cr 5.71, Gluc 202, POC Gluc 123-259 Meds: azithromycin, dilaudid, abx, Na bicarb, vitamin D, lipitor Current Diet: 1800 ADA, Renal Estimated Nutritional Needs: Calories: 1456-6774 (22-25kcal/kg/d) Weight used: IBW Protein: 82-109 (1.5-2g/kg/d) Weight used: IBW Diet Adequacy: Meeting calorie needs, Not meeting protein needs Tolerance: tolerating po Malnutrition Evaluation (01/25/20) The patient does not meet criteria for a specified degree of malnutrition at this time. Will re-evaluate at follow-up as appropriate. Diet Education Needs Assessment: Pending HD needs prior to discharge, will address diet education at follow up. Nutrition Care Level: low Signed: Janae Danielle RD, LD, [facility]
--- NOTE | 2020-01-25 19:00 | NUR ---
RECEIVED PATIENT IN BEDSIDE SHIFT REPORT. PATIENT IS A&OX1-2. PATIENT RESTING IN BED AT THIS TIME. INTERMITTENT MOANING FROM PAIN NOTED. NO S&S OF DISTRESS NOTED. IV TO R AC 20G RUNNING D51/2NS @ 40ML/HR. TELE MONITOR ON, RUNNING SR. PATIENT IS CONFUSED AND SEEMS TO BE HALLUCINATING, MENTIONING A BIG, BLACK DOG IN THE ROOM. BED ALARM IS ACTIVE. BED LOCKED IN LOWEST POSITION, SIDE RAILS UPX2, CALL LIGHT IN REACH.
--- NOTE | 2020-01-25 19:20 | NUR ---
NO ALTERNATING PRESSURE PUMP FOUND IN ROOM. WILL FIND ONE AND PLACE ON PATIENT'S BED SOON POSSIBLE. Addendum: 01/26/20 at 0100 by Sulema Palma RN Amended: Links added.
[2020-01-25] MEDS: ATORVASTATIN 40 MG TAB PO SCH (21:00)
--- NOTE | 2020-01-25 21:00 | NUR ---
PATIENT REFUSING TURNS AT THIS TIME. WILL CONTINUE TO ATTEMPT.
--- NOTE | 2020-01-25 22:45 | NUR ---
ALTERNATING PRESSURE BED PUMP PLACED ON BED.
[2020-01-26] VITALS (8 sets, daily range): BP systolic 121–173; BP diastolic 55–81
[2020-01-26] MEDS: HYDROMORPHONE 1MG/1ML INJ IV PRN ×5 (00:03→23:36)
--- NOTE | 2020-01-26 01:30 | NUR ---
PATIENT CALLING OUT, MENTIONING THE DOG AGAIN, DOGS NOTED ON TV ON RELAXATION CHANNEL, TURNED OFF TV. PATIENT SEEMED TO CALM DOWN. EXPLAINED IT IS THE MIDDLE OF THE NIGHT AND TIME TO SLEEP AND PATIENT CLOSED EYES TO SLEEP. WILL CONTINUE TO CLOSELY MONITOR PATIENT.
[2020-01-26] MEDS: INSULIN LISPRO 100 UNIT/1 ML 3ML VIAL SQ SCH ×7 (07:30→21:00)
[2020-01-26 08:10] LABS: BASOPHILS # (AUTO) 0.1 (0.0-0.1); BASOPHILS % 0.4 % (0.0-1.0); EOSINOPHILS # (AUTO) 0.1 (0.0-0.4); EOSINOPHILS % 0.7 % (0.0-6.0); HEMATOCRIT 31.9 % (34.2-44.1); HEMOGLOBIN 9.5 g/dL (12.0-16.0); LYMPHOCYTES # (AUTO) 0.6 (1.0-3.2); LYMPHOCYTES % 3.8 % (18.0-39.1); MEAN CORPUSCULAR HEMOGLOBIN 27.8 pg (28-32); MEAN CORPUSCULAR HGB CONC 29.8 g/dL (31-35); MEAN CORPUSCULAR VOLUME 93.3 fL (81-99); MONOCYTES # (AUTO) 1.3 (0.2-0.8); MONOCYTES % 8.2 % (4.4-11.3); NEUTROPHILS # (AUTO) 12.6 (2.1-6.9); NEUTROPHILS % 82.5 % (38.7-80.0); PLATELET COUNT 190 x10e3/uL (140-360); RED BLOOD COUNT 3.42 x10e6/uL (3.6-5.1); RED CELL DISTRIBUTION WIDTH 14.8 % (11.7-14.4)
[2020-01-26 08:30] LABS: ANION GAP 16.1 mmol/L (8-16); CALCIUM 7.4 mg/dL (8.4-10.2); POTASSIUM 4.1 mmol/L (3.5-5.1)
--- NOTE | 2020-01-26 09:24 | NUR ---
ASSESSMENT: Spiritual distress Pt states she is "ready for God to take me" and that she needs to "forgive her daddy and forgive herself." Pt requests her to "let her go." Pt states she wants to be with her family. Pt identifies as Latter Day. Intervention: Steamship Agent provided calming pastoral presence and facilitated storytelling. Outcome: Steamship Agent facilitated a call to her cnc router operator. Visit conducted by [facility] O: [phone]
[2020-01-26] MEDS: CHOLECALCIFEROL 1,000 UNIT TAB PO SCH (11:02)
[2020-01-26] MEDS: SODIUM BICARBONATE 650 MG TAB PO SCH (11:02)
[2020-01-26] MEDS: CARVEDILOL 12.5 MG TAB PO SCH ×2 (11:02→17:26)
[2020-01-26] MEDS: CEFEPIME 1GM/NS 0.9% 50 ML 50 ML IV SCH (11:02)
[2020-01-26] MEDS: VENLAFAXINE HCL 75 MG CAPCR PO SCH (11:02)
[2020-01-26] MEDS: INSULIN GLARGINE 100 UNITS/ML VIAL SQ SCH (11:47)
--- NOTE | 2020-01-26 12:52 | Progress Note ---
DATE: SUBJECTIVE: The patient has improved. She is a DNR now. The patient underwent hemodialysis, still complaining of pain everywhere. She is denying any nausea or vomiting. PHYSICAL EXAMINATION: VITAL SIGNS: Temperature 97.8, pulse of 86, and blood pressure 121/81. CHEST: Clear. ABDOMEN: Soft. LABORATORY DATA: Two blood cultures growing E. coli. ASSESSMENT/PLAN: Ms. Stewart is an 89-year-old female with Escherichia coli sepsis, pneumonia. Continue the patient on antibiotics per ID recommendation. Oxygen as needed to keep the O2 saturation more than or equal to 92%. HD per Nephrology. MD ISIDRO Cruz/SHELLY /[id number]
--- NOTE | 2020-01-26 15:59 | NUR ---
Patient IV infiltrated. was assessing patient and stated that patient could use the trialysis for continuous IV instead of placing another IV. Will increase IV fluids to 60 mL/hr due to patient not eating or drinking.
--- NOTE | 2020-01-26 16:54 | NUR ---
Dr. Scales was called once this magazine writer talked to the family about the patient's rapidly declining status. This magazine writer discussed with Dr. Montgomery and Dr. Peña about the patient's status and they agreed that the patient is not doing well and at this point Dr. Montgomery is stopping. Dialysis, [facility] was called and was cancelled for tomorrow. Dr. Peña said he feared "at this point patient is most likely septic." Dr. Scales did place a DNAR order at this time, however when family was discussed hospice/palliative care with this magazine writer they agreed. Once called and talked to Tarun, the , they called this magazine writer back and stated that Dr. García stated he "felt 100% confident that patient would get better, at this time will not be discussing hospice any further." This magazine writer did continue all orders in place at this time. Patient is very uncomfortable, pain level is not controlled, MD is aware, patient hallucinates quite often, MD is also aware. Patient does have many moments of lucid conversations and knows how she is, where she is, but not the time. Patient is also NOT tolerating anything by mouth. Swallow eval was done by speech therapy and she did "ok" but they have requested a MBS for tomorrow because they are unsure if she is aspirating. Patient has a lot of trouble swallowing medications, which she did not yesterday. Patient tolerated medications and eating all of her own food and drink independently yesterday. Will continue to closely monitor and report all information to oncoming shift.
[2020-01-26] MEDS: DEXTROSE 5%/0.45% SOD CHL 1,000 ML IV SCH (17:25)
--- NOTE | 2020-01-26 19:00 | NUR ---
RECEIVED PATIENT IN BEDSIDE SHIFT REPORT. PATIENT A&OX1-2. GOES IN AND OUT OF CONFUSION/HALLUCINATIONS AND BEING ALERT. PATIENT NOTED TO FALL ASLEEP MID-SENTENCE. O2@6L VIA NC. ALTERNATING PRESSURE PUMP ACTIVE. D5 1/2NS @ 60ML/HR TO TRIALYSIS CATHETER PORT WITH OK TO USE PER MD. FRANCO DRAINING CLEAR, LIGHT RICARDO/YELLOW URINE TO GRAVITY, BAG OFF OF FLOOR. BED LOCKED IN LOWEST POSITION, SIDE RAILS UPX2, CALL LIGHT IN REACH, BED ALARM ACTIVE.
[2020-01-26] MEDS: ATORVASTATIN 40 MG TAB PO SCH (21:00)
--- NOTE | 2020-01-26 23:30 | NUR ---
PATIENT AGITATED, STATED STAFF "LEFT ME HERE ON THE TABLE TO AND HAVEN'T BEEN BACK IN HOURS." REMINDED PATIENT THAT STAFF WAS IN THE ROOM LESS THAN AN HOUR BEFORE TO CHECK ON HER. PATIENT MAKING STATEMENTS SUCH "I DONT WANT TO BURN, I DONT WANT TO BE CREMATED!" AND "I'M SITTING HERE AND NO ONE IS HERE WITH ME." REMINDED PATIENT THAT SHE IS ALIVE, WE ARE MONITORING HER AT ALL TIMES VIA TELE MONITOR AND VERY FREQUENT CHECKS BY STAFF. PATIENT VERY CONFUSED AND OCCASIONALLY DISTRESSED. STAFF IS MONITORING PATIENT EVERY 30MINS-1HOUR TO ENSURE PATIENT IS SAFE. BED ALARM IS ACTIVE. CALL LIGHT IN REACH.
[2020-01-27] VITALS (8 sets, daily range): BP systolic 135–174; BP diastolic 46–80
[2020-01-27] MEDS: ACETAMINOPHEN 325 MG TAB PO PRN (03:58)
--- NOTE | 2020-01-27 04:03 | NUR ---
PROVIDED APPLESAUCE AND NECTAR THICKENED WATER TO PATIENT. NO CHOKING NOTED.
[2020-01-27] MEDS: DEXTROSE 5%/0.45% SOD CHL 1,000 ML IV SCH ×2 (06:45→21:37)
--- NOTE | 2020-01-27 07:21 | NUR ---
Bedside report complete with Macarena Galloway RN. The patient is confused, complains of back pain, and moans with someone at the bedside. Will monitor pain and medicate with Tylenol. Will avoid Narcotics b/c of confusion.
[2020-01-27] MEDS: INSULIN LISPRO 100 UNIT/1 ML 3ML VIAL SQ SCH ×7 (07:30→21:00)
[2020-01-27] MEDS: INSULIN GLARGINE 100 UNITS/ML VIAL SQ SCH (07:30)
--- NOTE | 2020-01-27 08:30 | NUR ---
Started Hemodialysis for the third time.
[2020-01-27] MEDS: VENLAFAXINE HCL 75 MG CAPCR PO SCH (09:00)
[2020-01-27] MEDS: SODIUM BICARBONATE 650 MG TAB PO SCH (09:00)
[2020-01-27] MEDS: CARVEDILOL 12.5 MG TAB PO SCH ×2 (09:00→18:20)
[2020-01-27] MEDS: CHOLECALCIFEROL 1,000 UNIT TAB PO SCH (09:00)
[2020-01-27] MEDS: CEFEPIME 1GM/NS 0.9% 50 ML 50 ML IV SCH (09:15)
--- NOTE | 2020-01-27 09:15 | NUR ---
Pt unavailable at this time. Pt receiving dialysis. Will follow up as able. [facility] O: [phone]
--- NOTE | 2020-01-27 10:00 | NUR ---
Given Dilaudid and am holding her IV antibiotic until after HD.
--- NOTE | 2020-01-27 10:13 | NUR ---
Notified by Telemetry that the patient has had a 11-12 beat run of V-Tach. Will notify Dr. Villalobos.
[2020-01-27] MEDS: HYDROMORPHONE 1MG/1ML INJ IV PRN ×3 (10:30→19:10)
--- NOTE | 2020-01-27 11:30 | NUR ---
Dr. Araya notified of V-Tach run when he came to see the patient today. He said to notify
--- NOTE | 2020-01-27 12:00 | NUR ---
Dr. Villalobos notified of patients run of V-Tach today.
--- NOTE | 2020-01-27 12:45 | NUR ---
MBS complete and the therapist said to give patient nectar thick liquids with mechanical soft diet. Modified diet order to comply.
--- NOTE | 2020-01-27 13:39 | NUR ---
Dr. Villalobos returned the consult call and will see patient today.
--- NOTE | 2020-01-27 14:09 | NUR ---
at the bedside to visit patient and he was told to wear his mask at all times. He was also asked to ask any questions he may need answers to while he is here.
--- NOTE | 2020-01-27 15:29 | NUR ---
Dr. Villalobos at the bedside.
--- NOTE | 2020-01-27 16:24 | Diagnostic Imaging Report ---
PROCEDURE: X-RAY MODIFIED BARIUM SWALLOW COMPARISON: None. INDICATION: Aspiration Radiation Details: Fluoroscopy time: 2.0 minutes Cumulative dose: 4.9 mGy DISCUSSION: Fluoroscopic examination was performed in conjunction with speech pathology during swallowing a variety of thin and thick liquid consistencies. Provided images demonstrate no laryngeal penetration or aspiration. CONCLUSION: Modified barium swallow demonstrating no laryngeal penetration or aspiration. Please refer to the speech pathology report for further details. Signed by: Quan Muniz MD on 01/27/2020 4:20 PM
--- NOTE | 2020-01-27 19:10 | NUR ---
received report from day nurse. patient is resting comfortably in the bed. bed is in the lowest position and call light is within reach.
[2020-01-27] MEDS: ATORVASTATIN 40 MG TAB PO SCH (21:37)
[2020-01-28] VITALS (8 sets, daily range): BP systolic 127–186; BP diastolic 59–84
[2020-01-28] MEDS: HYDROMORPHONE 1MG/1ML INJ IV PRN ×6 (00:20→23:19)
--- NOTE | 2020-01-28 07:14 | NUR ---
report given to day nurse.patient is resting in bed. bed is in lowest position and call light is within reach.
[2020-01-28] MEDS: INSULIN LISPRO 100 UNIT/1 ML 3ML VIAL SQ SCH ×7 (08:00→20:17)
[2020-01-28] MEDS: INSULIN GLARGINE 100 UNITS/ML VIAL SQ SCH (08:00)
[2020-01-28] MEDS: SODIUM BICARBONATE 650 MG TAB PO SCH (10:00)
[2020-01-28] MEDS: CARVEDILOL 12.5 MG TAB PO SCH ×2 (10:00→17:35)
[2020-01-28] MEDS: VENLAFAXINE HCL 75 MG CAPCR PO SCH (10:00)
[2020-01-28] MEDS: CHOLECALCIFEROL 1,000 UNIT TAB PO SCH (10:00)
[2020-01-28] MEDS: CEFEPIME 1GM/NS 0.9% 50 ML 50 ML IV SCH (10:06)
--- NOTE | 2020-01-28 13:10 | NUR ---
Brief Renal Progress note Subjective - chart reviewed and events noted - patient is s/p HD yesterday O - BP 127/59, P - 77, RR 20, Temp 97 Labs - no labs available since 01/25 P/E - Gen - not in acute distress Chest - harsh bilateral breath sounds heart - rrr Abd - NT/ND Ext - trace edema A & P - no indication for HD today - will get daily BMP and then follow - hypertension controlled now '- strict I & O - avoid nephrotoxins like NSAID
--- NOTE | 2020-01-28 15:37 | Diagnostic Imaging Report ---
EXAMINATION: CHEST SINGLE (PORTABLE) INDICATION: Status post fall due to syncope. Pneumonia. COMPARISON: 01/22/2020. FINDINGS: TUBES and LINES: Dialysis catheter with its tip projected on the cavoatrial junction. LUNGS: Bilateral pulmonary venous congestion. Patchy increased density in the lower lobes. PLEURA: No pneumothorax. Cannot exclude small pleural effusions. HEART AND MEDIASTINUM: Cardiac size is moderately enlarged. Atherosclerotic calcification of the thoracic aorta. BONES AND SOFT TISSUES: No acute osseous or soft tissue findings. Redemonstration of displaced left clavicle fracture. UPPER ABDOMEN: No free air under the diaphragm. IMPRESSION: Moderate cardiomegaly. Bilateral pulmonary venous congestion and central pulmonary edema. Cannot exclude superimposed infection in the lower lobes. Signed by: Dr. Alina Washington M.D. on 01/28/2020 3:34 PM
[2020-01-28] MEDS: FENTANYL 12MCG/HR PATCH TD SCH (17:35)
[2020-01-28] MEDS: DEXTROSE 5%/0.45% SOD CHL 1,000 ML IV SCH (18:32)
--- NOTE | 2020-01-28 18:53 | NUR ---
AWAKE AND ALERT. ACYANOTIC. RESTING IN BED. NO DISTRESS NOTED. CALL LIGHT IN REACH. SIDE RAILS UP X2. BED LOW AND LOCKED. REPORT RECEIVED BY ONCOMING NURSE.
--- NOTE | 2020-01-28 19:22 | NUR ---
received report from day nurse. patient is resting comfortably in bed. bed is in lowest position and call light is within reach. will continue to monitor patient.
[2020-01-28] MEDS: ATORVASTATIN 40 MG TAB PO SCH (20:16)
[2020-01-29] VITALS (7 sets, daily range): BP systolic 132–178; BP diastolic 57–76
[2020-01-29] MEDS: HYDROMORPHONE 1MG/1ML INJ IV PRN ×3 (02:23→21:08)
[2020-01-29 06:38] LABS: ANION GAP 14.5 mmol/L (8-16); CALCIUM 8.2 mg/dL (8.4-10.2); CREATININE, SERUM 2.87 mg/dL (0.57-1.11); POTASSIUM 4.5 mmol/L (3.5-5.1)
--- NOTE | 2020-01-29 07:11 | NUR ---
report given to day nurse. patient is resting in the bed. continues on oxygen via the nasal canula.
--- NOTE | 2020-01-29 07:29 | NUR ---
ASSUMED CARE. RESTING IN BED WITH EYES CLOSED. EQUAL RISE AND FALL OF CHEST NOTED WITH RESPIRATIONS. ACYANOTIC. NO DISTRESS NOTED. CALL LIGHT IN REACH. SIDE RAILS UP X2. BED LOW AND LOCKED. BED ALARM NOTED.
[2020-01-29] MEDS: INSULIN LISPRO 100 UNIT/1 ML 3ML VIAL SQ SCH ×7 (07:30→21:00)
[2020-01-29] MEDS: SODIUM BICARBONATE 650 MG TAB PO SCH (10:05)
[2020-01-29] MEDS: CEFEPIME 1GM/NS 0.9% 50 ML 50 ML IV SCH (10:05)
[2020-01-29] MEDS: CARVEDILOL 12.5 MG TAB PO SCH ×2 (10:05→18:00)
[2020-01-29] MEDS: VENLAFAXINE HCL 75 MG CAPCR PO SCH (10:05)
[2020-01-29] MEDS ORDERED: FUROSEMIDE INJ 10 MG/ML 4 ML VIAL IV ONE (10:15)
[2020-01-29] MEDS: DEXTROSE 5%/0.45% SOD CHL 1,000 ML IV SCH (12:46)
[2020-01-30] VITALS (8 sets, daily range): BP systolic 137–189; BP diastolic 60–90
[2020-01-30] MEDS: HYDROMORPHONE 1MG/1ML INJ IV PRN ×7 (02:00→23:21)
--- NOTE | 2020-01-30 07:08 | NUR ---
report given to day nurse. patient is resting comfortably in the bed. bed is in lowest position and call light is within reach.
[2020-01-30] MEDS: INSULIN LISPRO 100 UNIT/1 ML 3ML VIAL SQ SCH ×8 (07:30→21:00)
[2020-01-30] MEDS: FUROSEMIDE INJ 10 MG/ML 2 ML VIAL IV SCH (08:54)
[2020-01-30] MEDS: CARVEDILOL 12.5 MG TAB PO SCH ×2 (08:54→17:26)
[2020-01-30] MEDS: SODIUM BICARBONATE 650 MG TAB PO SCH (08:55)
[2020-01-30] MEDS: VENLAFAXINE HCL 75 MG CAPCR PO SCH (08:55)
[2020-01-30 10:10] LABS: ANION GAP 16.4 mmol/L (8-16); CALCIUM 8.3 mg/dL (8.4-10.2); CREATININE, SERUM 3.63 mg/dL (0.57-1.11); POTASSIUM 4.4 mmol/L (3.5-5.1)
[2020-01-30] MEDS ORDERED: SODIUM CHLORIDE 0.9% 250ML 250 ML ONE (10:14)
--- NOTE | 2020-01-30 13:32 | NUR ---
SPOKE TO DR. HARKINS REGARDING PHYSICAL THERAPY ODER THAT HE ISSUED THIS MORNING AND HER DISPLACED LEFT CLAVICLE FRACTURE, DR. HARKINS STATED, "JUST TELL THEM TO WORK WITH HER AND DO WHAT THEY CAN DO, IF SHE IS IN TOO MUCH PAIN OR IF THEY DO NOT FEEL COMFORTABLE THEN HOLD OFF."
[2020-01-30] MEDS: CEFEPIME 1GM/NS 0.9% 50 ML 50 ML IV SCH (13:38)
[2020-01-30] MEDS ORDERED: HYDRALAZINE HCL 20 MG/ML VIAL IV STA (17:12)
[2020-01-30] MEDS ORDERED: HYDRALAZINE HCL 20 MG/ML VIAL ONE (17:22)
[2020-01-30] MEDS ORDERED: HYDROMORPHONE 1MG/1ML INJ IV STA (17:50)
[2020-01-30] MEDS ORDERED: FENTANYL 12MCG/HR PATCH TD SCH (18:00)
--- NOTE | 2020-01-30 22:31 | Progress Note ---
DATE: 01/30/2020 Beckie Stewart is an 89-year-old female who had presented with bilateral bronchopneumonia, compression fracture of this spine, possible intracranial bleed. The patient's CBC is reasonable. The high white count has come down from 18,000 to 15,000. However, the patient's blood cultures have been positive for Escherichia coli. The patient is on IV antibiotics. The patient has Dr. Geoff Saunders, the Infectious Disease product development consultant, on the case. She is more alert today. Rehab consultation has been obtained. A chest x-ray yesterday was suggestive of congestive heart failure. I have started her on Lasix. Dr. Fabian Villalobos, books salesperson, is also on a case. Dr. Eder Berumen, the crib clerk, is also on the case. Aggressive supportive care will be given to the patient. The patient's family has refused hospice care. MD PADMA Otero/SHELLY /[id number]
[2020-01-31] VITALS (9 sets, daily range): BP systolic 119–154; BP diastolic 50–76
[2020-01-31 05:04] LABS: BASOPHILS # (AUTO) 0.1 (0.0-0.1); BASOPHILS % 0.4 % (0.0-1.0); EOSINOPHILS % 0.1 % (0.0-6.0); HEMATOCRIT 30.2 % (34.2-44.1); HEMOGLOBIN 9.3 g/dL (12.0-16.0); LYMPHOCYTES # (AUTO) 0.7 (1.0-3.2); LYMPHOCYTES % 2.9 % (18.0-39.1); MEAN CORPUSCULAR HEMOGLOBIN 28.3 pg (28-32); MEAN CORPUSCULAR HGB CONC 30.8 g/dL (31-35); MEAN CORPUSCULAR VOLUME 91.8 fL (81-99); MONOCYTES # (AUTO) 1.5 (0.2-0.8); MONOCYTES % 6.5 % (4.4-11.3); NEUTROPHILS # (AUTO) 19.7 (2.1-6.9); NEUTROPHILS % 86.7 % (38.7-80.0); PLATELET COUNT 266 x10e3/uL (140-360); RED BLOOD COUNT 3.29 x10e6/uL (3.6-5.1); RED CELL DISTRIBUTION WIDTH 14.1 % (11.7-14.4)
[2020-01-31 05:15] LABS: ANION GAP 17.9 mmol/L (8-16); CALCIUM 8.2 mg/dL (8.4-10.2); CREATININE, SERUM 2.8 mg/dL (0.57-1.11); POTASSIUM 4.9 mmol/L (3.5-5.1)
[2020-01-31] MEDS: HYDROMORPHONE 1MG/1ML INJ IV PRN ×5 (06:09→21:52)
--- NOTE | 2020-01-31 06:42 | NUR ---
patient is resting in the bed. bed is in the lowest position and call light is within reach.
[2020-01-31] MEDS: INSULIN LISPRO 100 UNIT/1 ML 3ML VIAL SQ SCH ×7 (07:30→21:00)
--- NOTE | 2020-01-31 08:40 | Diagnostic Imaging Report ---
EXAMINATION: CHEST SINGLE (PORTABLE) INDICATION: Shortness of breath COMPARISON: Chest radiograph 01/28/2020 FINDINGS: LINES/TUBES:Right IJ temporary dialysis catheter terminates at the superior cavoatrial junction. EKG leads overlie the chest. LUNGS:The lungs are moderately inflated. There is perihilar fullness and indistinctness of the pulmonary vasculature. Hazy bibasilar opacities. PLEURA:No pleural effusion or pneumothorax. MEDIASTINUM:The cardiomediastinal silhouette appears unchanged in size and shape. Atherosclerotic calcifications of the thoracic aorta. BONES/SOFT TISSUES:No acute osseous injury. Old nonunited left clavicle fracture. ABDOMEN:No free air under the diaphragm. IMPRESSION: Cardiomegaly and pulmonary edema, not significantly changed from 01/28/2020. Superimposed pneumonitis could also have this appearance and should be excluded clinically. Signed by: Quan Muniz MD on 01/31/2020 8:37 AM
[2020-01-31] MEDS: SODIUM BICARBONATE 650 MG TAB PO SCH (08:50)
[2020-01-31] MEDS: VENLAFAXINE HCL 75 MG CAPCR PO SCH (08:50)
[2020-01-31] MEDS: FUROSEMIDE INJ 10 MG/ML 2 ML VIAL IV SCH (08:50)
[2020-01-31] MEDS: ACETAMINOPHEN 325 MG TAB PO PRN ×2 (08:50→16:45)
[2020-01-31] MEDS: CEFEPIME 1GM/NS 0.9% 50 ML 50 ML IV SCH (08:50)
[2020-01-31] MEDS: AZITHROMYCIN 250 MG TAB PO SCH (08:50)
[2020-01-31] MEDS: CARVEDILOL 12.5 MG TAB PO SCH ×2 (08:50→16:50)
--- NOTE | 2020-01-31 09:43 | Progress Note ---
DATE: 01/31/2020 SUBJECTIVE: Beckie Stewart is an 89-year-old female, who had presented with fall and shortness of breath. The patient's white count today is higher than before is 22,740. The patient is septic with Escherichia coli. The patient presently on cefepime and Zithromax. Dr. Saunders is the risk assessment consultant on the case. The patient's hemoglobin is reasonable at 9.3. Her creatinine is coming down; however, she is on dialysis. BUN being 37, creatinine 2.8, and the potassium is normal. Dr. Montgomery, the rig site engineer is on the case. I have called Dr. Saunders to reconsider antibiotics. The patient's chest x-ray was suggestive of congestive heart failure. I have also added 20 mg of Lasix IV daily. The pain is reasonably controlled. She is more alert than before. I have kept in touch with the patient's regarding her progress. Physiotherapy consult as well as Rehab consult have been obtained. MD PADMA Otero/SHELLY /[id number]
--- NOTE | 2020-01-31 09:53 | Diagnostic Imaging Report ---
Bilateral chest ultrasound History: Pleural effusion Technique/findings: Limited bilateral chest ultrasound was performed to evaluate for pleural effusion. This demonstrated a trace right pleural effusion and no left pleural effusion. IMPRESSION: Trace right pleural effusion and no left pleural effusion. Insufficient fluid for safe performance of thoracentesis. Signed by: Quan Muniz MD on 01/31/2020 9:50 AM
--- NOTE | 2020-01-31 10:21 | NUR ---
Spoke to Dr.Akuchie Fiore via telephone. Aware of WBC 22.74 and chest xray results. Orders received to give vancomycin 1gm IV once
[2020-01-31] MEDS ORDERED: VANCOMYCIN 1GM/NS 250 ML 250 ML IV ONE (11:00)
--- NOTE | 2020-01-31 14:33 | NUR ---
CM SPOKE WITH DR RENE ABOUT DC PLAN/GOALS FOR THIS PT PT IS A DNR GOAL IS TO TREAT PNEUMONIA AND INCREASE STRENGTH, PAIN CONTROL FOR COMPRESSION FRACTURES DR CRABTREE WITH [facility] CONSULTED DISCUSSED WITH DR RENE THE APPROPRIATENESS OF ACUTE REHAB ON THIS PT P.T. EVAL SHOWS PT ONLY ABLE TO SIT ON SIDE OF BED ORDERS REC'D FOR LTAC DISCUSSED WITH PT WHO DEFERS DECISION MAKING TO HER VISITING PT TODAY AND CM SPOKE WITH HIM ABOUT LTAC AND HE AGREES CHOSE [facility] [place] HIS ELDEST SON IS ALSO CURRENTLY A PT THERE CHOICE LETTER SIGNED NOTIFIED [facility] WITH [facility] AND FAXED CLINICAL INFORMATION TO [phone] OUT OF HOSPITAL DNR ON FRONT OF CHART FOR DR RENE TO SIGN PACKET AT DESK
--- NOTE | 2020-01-31 17:04 | Consultation ---
DATE OF CONSULTATION: 01/31/2020 I thank, Dr. Sacles, for asking me to see Ms. Stewart in consultation. REASON FOR CONSULTATION: 1. Low back pain. 2. Severe sepsis. 3. History of chronic pain. HISTORY OF PRESENT ILLNESS: History mainly from medical records on the chart. The patient is a very sweet 89-year-old female, who came into the hospital after a fall, was found to have low O2 saturations in the mid 80s. Underwent workup and imaging including thoracic, lumbar and cervical MRI, showed quro-[id number] T7 vertebral compression fractures with marrow edema, may be acute or subacute. Chronic pkyy-ol-wuokobmc T6 vertebral compression fracture without significant retropulsion. No cord compression. Underlying mild multilevel thoracic disk degeneration and there was a question of issues with her CT of the brain. However, the CT showed chronic moderate generalized volume loss, diffuse supratentorial white matter, vascular ischemic changes. The patient has had difficult at times with mobilizing, having actually a difficult time with back pain, and is being treated for sepsis. At this point, I am being asked to evaluate for rehab needs. PAST MEDICAL HISTORY: Includes hypertension, chronic renal failure, hyperlipidemia, diabetes, and prior history of stroke. HABITS: Nonsmoker and nondrinker. REVIEW OF SYSTEMS: Essentially negative except the above findings. PAST SURGICAL HISTORY: Include appendectomy, hysterectomy, and carotid artery disease according to chart records. SOCIAL HISTORY: Lives with her spouse in a one-mirta home. She was at prior to her admission. LABORATORY DATA: White cell count of 22.7, hemoglobin 9.2, hematocrit 30.2, and platelets of 266. Sodium is 133, potassium 4.9, BUN of 37, and creatinine 2.8. IMAGING: Showed chest x-ray, which showed cardiomegaly and pulmonary edema. Therapy note shows min assist with dynamic sitting, max assist with supine to sit transfers. Overall, able to sit up at the side of the bed without being able to do much more activity than that. PHYSICAL EXAMINATION: GENERAL: The patient is lying in bed. She is very sleepy. I could arouse her and she could barely answer questions. She is very tired right now. EYES: Eyes are closed. HEART: Regular. LUNGS: Diminished breath sounds. ABDOMEN: Nondistended. EXTREMITIES: She can wiggle her ankles. She has really good director sales and marketing, but when it came to elbow flexion and extension, shoulder flexion and extension, . She could flex her knees a little bit, but again she would not often go to sleep. I could not turn her to assess her back. She is denying any new radiating pain down the leg. IMPRESSION: 1. Compression fracture vertebral spine. 2. Sepsis. 3. Leukocytosis. 4. Acute tubular necrosis. PLAN: At this point, she would not qualify for inpatient rehab. She is a better candidate for LTAC. They are in the midst of trying to get her move/transfer. We will follow at LTAC and try to gradually increase her activity over time. Thank you once again for allowing me to participate in care of this pleasant, but unfortunate patient. Garth Keene DO RPL/MODL /[id number]
--- NOTE | 2020-01-31 18:52 | NUR ---
Report given to oncoming nurse of patients status. Resting in bed with eyes closed. Arousable to verbal stimuli.Respirations even and unlabored. O2 4L NC. NO s/s of acute distress noted. Side rails upx2, call light within reach, bed alarm on.
[2020-02-01] VITALS (9 sets, daily range): BP systolic 130–165; BP diastolic 58–94
[2020-02-01] MEDS: HYDROMORPHONE 1MG/1ML INJ IV PRN ×5 (02:42→19:35)
[2020-02-01 04:52] LABS: BASOPHILS # (AUTO) 0.1 (0.0-0.1); BASOPHILS % 0.3 % (0.0-1.0); EOSINOPHILS # (AUTO) 0.2 (0.0-0.4); EOSINOPHILS % 0.7 % (0.0-6.0); HEMATOCRIT 31.7 % (34.2-44.1); HEMOGLOBIN 9.7 g/dL (12.0-16.0); LYMPHOCYTES # (AUTO) 0.6 (1.0-3.2); LYMPHOCYTES % 2.6 % (18.0-39.1); MEAN CORPUSCULAR HEMOGLOBIN 28.9 pg (28-32); MEAN CORPUSCULAR HGB CONC 30.6 g/dL (31-35); MEAN CORPUSCULAR VOLUME 94.3 fL (81-99); MONOCYTES # (AUTO) 1.9 (0.2-0.8); MONOCYTES % 8.3 % (4.4-11.3); NEUTROPHILS # (AUTO) 19.6 (2.1-6.9); NEUTROPHILS % 85.1 % (38.7-80.0); PLATELET COUNT 265 x10e3/uL (140-360); RED BLOOD COUNT 3.36 x10e6/uL (3.6-5.1); RED CELL DISTRIBUTION WIDTH 14.1 % (11.7-14.4)
[2020-02-01 06:00] LABS: ALBUMIN 2.4 g/dL (3.5-5.0); ALBUMIN/GLOBULIN RATIO 0.6 (0.8-2.0); CALCIUM 8.4 mg/dL (8.4-10.2); CREATININE, SERUM 3.52 mg/dL (0.57-1.11)
--- NOTE | 2020-02-01 06:49 | NUR ---
patient is resting in the bed. bed is in the lowest position and call light is within reach.
[2020-02-01] MEDS: VENLAFAXINE HCL 75 MG CAPCR PO SCH (08:03)
[2020-02-01] MEDS: SODIUM BICARBONATE 650 MG TAB PO SCH (08:03)
[2020-02-01] MEDS: AZITHROMYCIN 250 MG TAB PO SCH (08:03)
[2020-02-01] MEDS: INSULIN LISPRO 100 UNIT/1 ML 3ML VIAL SQ SCH ×7 (08:10→21:00)
[2020-02-01] MEDS ORDERED: SODIUM CHLORIDE 0.9% 1000ML 2,000 ML IV PRN (08:15)
[2020-02-01] MEDS ORDERED: SODIUM CHLORIDE 0.9% 250ML 500 ML IV PRN (08:15)
[2020-02-01] MEDS ORDERED: HEPARIN SOD (PORCINE) 1000 UNIT/ML SDV IV PRN (08:15)
[2020-02-01] MEDS ORDERED: MANNITOL 25% 12.5GM/50 ML VIAL IV PRN (08:15)
[2020-02-01] MEDS ORDERED: ALBUMIN 25% 12.5GM 0.25 GM/ML BTL IV PRN (08:15)
[2020-02-01] MEDS: CARVEDILOL 12.5 MG TAB PO SCH ×2 (09:00→15:55)
--- NOTE | 2020-02-01 10:12 | Progress Note ---
DATE: 02/01/2020 Dialysis Note SUBJECTIVE: The patient seen on dialysis. Remains confused, awake though. No change in her respiratory status. by bedside. Dialysis initiated at the moment. OBJECTIVE: VITAL SIGNS: Blood pressure is 165/67, pulse rate 85, oxygen saturation 96% on nasal cannula. HEAD AND NECK: Unchanged. Oral mucosa appears relatively dry. A right IJ temporary dialysis catheter present. LUNGS: End-expiratory rhonchi. No rales. HEART: S1 and S2 audible. ABDOMEN: Soft, nontender. EXTREMITIES: Lower extremity, no edema. LABORATORY DATA: Labs show white count 22.9, hemoglobin 9.7, potassium 5, bicarb 22, creatinine 3.52 up from 2.80 yesterday. Last cultures on 01/27, no growth for 72 hours. IMPRESSION AND PLAN: Plan on getting a tunneled dialysis catheter. The patient to go to LTAC as fluid overload, acute tubular necrosis, dialysis dependent, azotemic. Discussed with . Discussed with case management, dialysis. Sodium 140, potassium 2, bicarb 35, calcium 2.5, blood flow 300. Dialysis at 500 UF 3 L or more. MD BRENDA Henley/MODL /[id number]
[2020-02-01] MEDS: ACETAMINOPHEN 325 MG TAB PO PRN (10:25)
--- NOTE | 2020-02-01 11:08 | Progress Note ---
DATE: 02/01/2020 SUBJECTIVE: Ms. Stewart was seen on rounds this morning. She is much more awake, much more alert, somewhat confused. I asked her, how she was doing, she said she is feeling better. I explained about the rehab and possibly going to LTAC. She says that she is not going to another facility. The patient otherwise is a little bit more alert. She is breathing well. Abdomen nondistended. Still really did not resist much against me at this time. LABORATORY STUDIES: White cell count 22.9, hemoglobin of 9.7, hematocrit 31.7, platelets of 265. Sodium and potassium are pending. PHYSICAL EXAMINATION: VITAL SIGNS: Temperature 97.8, respirations 20, heart rate 69, blood pressure 143/63. ASSESMENT AND PLAN: 1. Vertebral fractures. 2. Debilitation. 3. Leukocytosis. 4. Some confusion. Continues supportive care, will be most likely going to an LTAC. . We will follow. Garth Keene DO RPL/MODL /[id number]
[2020-02-01] MEDS: ALBUTEROL SULF 0.083% NEB SOLN 3 ML NEB NEB SCH ×2 (12:15→19:50)
[2020-02-01] MEDS ORDERED: FENTANYL CITRATE/PF 100MCG/2 ML INJ ONE (12:41)
[2020-02-01] MEDS ORDERED: MIDAZOLAM HCL 2 MG/2 ML VIAL ONE (12:41)
[2020-02-01] MEDS ORDERED: HEPARIN SOD (PORCINE) 1000 UNIT/ML SDV ONE (12:46)
--- NOTE | 2020-02-01 12:59 | Progress Note ---
DATE: At the present time, the patient is not alert. The patient is getting dialysis. The patient is in no code, possibility of transfer to a rehab has been contemplated. I have spoken to the patient's that she is leukemoid with a white count of 22,099. The patient's antibiotics have been changed after discussion with Dr. Saunders to: 1. Meropenem. 2. Vancomycin. The patient will be kept comfortable. No code. The patient is terminally ill. The understands and the family understands. MD PADMA Otero/SHELLY /[id number]
[2020-02-01] MEDS ORDERED: LIDOCAINE HCL 1% LOCAL INJ 20 ML VIAL ONE (14:05)
[2020-02-01] MEDS ORDERED: SODIUM CHLORIDE 0.9% 250ML 250 ML ONE (14:06)
--- NOTE | 2020-02-01 14:10 | Diagnostic Imaging Report ---
PROCEDURE: Conversion of non-tunneled to tunneled dialysis catheter Procedural Personnel Attending physician(s): Quan Muniz MD Fellow physician(s): None Resident physician(s): None Advanced practice provider(s): None Pre-procedure diagnosis: ESRD Post-procedure diagnosis: Same Indication: Performance of hemodialysis Additional clinical history: None Complications: No immediate complications. IMPRESSION: Conversion of right-sided internal jugular non-tunneled trialysis catheter for a tunneled dialysis catheter, with tip in the expected location of the right atrium. Plan: The catheter may be used immediately. PROCEDURE SUMMARY: - Temporary trialysis catheter removal - Tunneled central venous catheter insertion with fluoroscopic guidance - Additional procedure(s): None PROCEDURE DETAILS: Pre-procedure History and imaging of central venous access reviewed (QCDR): Yes Consent: Informed consent for the procedure including risks, benefits and alternatives was obtained and time-out was performed prior to the procedure. Preparation (MIPS): The site was prepared and draped using all elements of maximal sterile barrier technique including sterile gloves, sterile gown, cap, mask, large sterile sheet, sterile ultrasound probe cover, hand hygiene and cutaneous antisepsis with 2% chlorhexidine. Medical reason for site preparation exception (MIPS): Not applicable Anesthesia/sedation Level of anesthesia/sedation: Moderate sedation (conscious sedation) 1mg Versed, 50mcg fentanyl Anesthesia/sedation administered by: Independent trained observer under attending supervision with continuous monitoring of the patient?s level of consciousness and physiologic status Total intra-service sedation time (minutes): 30 Catheter exchange Local anesthesia was administered. A wire was passed through the indwelling central venous catheter and into the central veins. The catheter was removed, and a peel-away sheath was placed. An incision was made near the venous access site and the new catheter was tunneled subcutaneously to the venous access site. The catheter was advanced via a peel-away sheath into the vein under fluoroscopic guidance. Catheter tip location was fluoroscopically verified and a permanent image was stored. Catheter placed: [employer] 19cm tip to cuff Catheter size (Yoruba): 14.5 Yoruba Catheter flush: Heparin (1000 units/mL) Closure The access site was closed and a sterile bandage was applied. Access site closure technique: Tissue adhesive Catheter securement technique: Non-absorbable suture Contrast Contrast agent: None Contrast volume (mL): NA Radiation Dose Fluoroscopy time (minutes): 0.0 Reference air kerma (mGy): 0.4 Additional Details Additional description of procedure: None Equipment details: None Specimens removed: Temporary central venous catheter Estimated blood loss (mL): Less than 10 Standardized report: [email or web address] Attestation Signer name: Quan Muniz MD I attest that I was present for the entire procedure. I reviewed the stored images and agree with the report as written. Signed by: Quan Muniz MD on 02/01/2020 2:07 PM
[2020-02-01] MEDS: MEROPENEM 500MG/ NS 50ML 50 ML IV SCH (15:55)
[2020-02-01] MEDS: FUROSEMIDE INJ 10 MG/ML 2 ML VIAL IV SCH (15:55)
--- NOTE | 2020-02-01 16:11 | NUR ---
ST Note: Order for dysphagia therapy with NMES noted. Pt's RN, Emelyn, requested to hold off on initiating treatment today due to pt status. Will f/u as indicated.
--- NOTE | 2020-02-01 16:47 | NUR ---
aware of DEXTER results. See orders Addendum: 02/01/20 at 2010 by OBIE TAN RN ERROR
[2020-02-01] MEDS ORDERED: MINERAL OIL 132 ML BTL PR ONE (17:00)
--- NOTE | 2020-02-01 17:00 | NUR ---
SPOKE WITH PT'S WHO SIGNED CHOICE LETTER FOR [facility] CHOICE LETTER ON CHART CLINICALS FAXED TO [facility] AND CONFIRMATION REC'D PT SCHEDULED FOR DIALYSIS TUNNELED CATH TODAY PLAN DC TO LTAC IN AM
--- NOTE | 2020-02-01 17:03 | NUR ---
DISCUSSED OP DIALYSIS NEEDS WITH DR MIRAMONTES OK FOR LTAC TO ARRANGE WHEN SHE TRANSFERS THERE PT AND LIVE IN [facility] NOTIFIED [facility] WITH [facility] THAT OP DIALYSIS WILL NEED TO BE ARRANGED ONCE PT ARRIVES THERE DR MIRAMONTES REQUESTS PT BE PLACED AT [facility] ORDER PLACED IN PACKET FOR OP DIALYSIS ARRANGEMENTS
--- NOTE | 2020-02-01 17:35 | NUR ---
Nutrition Intervention Note RD Recommendation for Physician: - Continue current diet - Recommend Nepro BID for added nutrition Plan of Care: RD following, monitoring for tolerance and adequacy, oral supplement recommendation Nutrition reason for involvement: consult and follow up Primary Diagnose(s): s/p fall due to syncopal episode PMH: HTN, CRF, HLD, DM Ht: 64 in Wt: 217 lb BMI: 37.2 kg/m2 IBW: [address] Assessment: 01/31: Follow up and RD received consult for calorie count. RN stated she started calorie count yesterday. Pt remains with decreased PO intake and is eating <50% of meals per documentation. Pt was not alert at time of visit. Spoke to at bedside who provided RD with pts meal preferences. Pts reports no weight loss and that pt weighs in the 200 lb range. Recommend Nepro BID for added nutrition. Will continue to monitor. 01/24: 89 YOF admitted for fall / syncopal episode. Pt evaluated today for LOS. Pt s/p HD catheter placement today with dialysis pending. Pt with decreased po intake, 10-25% meal intake since admit. No wt loss reported. Chart reviewed. Will continue to monitor. GI: LBM 01/29 Skin: stage 1 pressure ulcer buttock Labs: 01/31: Na 131, K 5.0, BUN 51, Cr 3.52, Glu 132 01/24: Na 133, K 4, BUN 108, Cr 5.71, Gluc 202, POC Gluc 123-259 Meds: antibiotics, dilaudid, lasix, coreg, insulin, mannitol Current Diet: 1800 ADA, Renal Estimated Nutritional Needs: Calories: 0322-6684 (22-25kcal/kg/d) Weight used: IBW Protein: 82-109 (1.5-2g/kg/d) Weight used: IBW Diet Adequacy: Not meeting calorie needs, Not meeting protein needs Tolerance: tolerating po Malnutrition Evaluation (02/01/20) The patient does not meet criteria for a specified degree of malnutrition at this time. Will re-evaluate at follow-up as appropriate. Energy intake: <50% of estimated energy requirements for >5 days Weight loss: No weight loss reported Fat loss: unable to evaluate Muscle loss: unable to evaluate Supporting Evidence: Fluid accumulation: unable to evaluate Functional Status: unable to evaluate Diet Education Needs Assessment: RD is available for diet education as needed Nutrition Care Level: moderate Nutrition Diagnosis: Inadequate energy intake related to decreased ability to consume sufficient energy as evidenced by pt consuming <50% of meals. Goal: Patient will meet 75-100% of estimated needs by follow up Progress: Goal not met Interventions: -mineral and carbohydrate modified diet, Commercial beverage Monitoring/Evaluation: -Total energy intake, Total protein intake, Modified diet, Liquid supplement, Weight change Signed: Gissel Storm RD, LD
--- NOTE | 2020-02-01 17:36 | NUR ---
Calorie Count 01/30: Breakfast: 100% milk, 50% sausage Calories: ~123 kcal, Protein: ~10 g protein Lunch: 100% beverage, 25% meat, 25% starchy vegetable Calories: ~50 kcal, Protein: ~ 6 g protein Dinner: 100% beverage, 25% meat, and 25% nonstarchy vegetable Calories: ~71 kcal, ~6 g protein Total:~244 kcal,~22 g protein (pt is not meeting estimated kcal and protein needs)
--- NOTE | 2020-02-01 19:10 | NUR ---
Report given to oncoming nurse of patient's status. No s/s of acute distress noted. Dressing to right chest tunnelled HD cath clean, dry, and intact. Side rails upx2, call light within reach, bed alarm on.
--- NOTE | 2020-02-01 23:31 | Progress Note ---
DATE: 02/01/2020 SUBJECTIVE: The patient is seen in her room. She is now on her left lateral side in attendance of all of her family. The patient is awake, but appeared to be lethargic. However, when asked about her condition and about the pain in her back, she said, the pain is terrible. The patient has been medicated and had finished hemodialysis earlier. The patient also received a tunneled dialysis catheter since her renal function is not showing to normalize and also, the patient will be moved to an LTAC facility most likely on February 01. OBJECTIVE: GENERAL: The patient, as I said, is awake, but most of the conversation revealing that the patient is delusional and confused. VITAL SIGNS: The blood pressure is recorded with 150/62, saturation is normal at 95%. CHEST: The dialysis catheter. LUNGS: Revealing decreased breath sound. There are no rales, no wheezes. CARDIOVASCULAR SYSTEM: Normal apical impulse. The rhythm is regular, rate of 78 per minute. First and second heart sounds are normal. There is no S3. Systolic murmur 2/6 over the precordium is unchanged. ABDOMEN: Soft. There is no tenderness. EXTREMITIES: No edema. NEUROLOGIC: The patient is showing some movement in all extremities; however, the neurologic evaluation is difficult in her position and cooperation. LABORATORY DATA: Creatinine of 3.5, potassium is 5.0. White count is 22,900, hemoglobin is 9.7. IMPRESSION: 1. Coronary sclerotic and hypertensive cardiovascular disease with fluid overload and congestive heart failure. 2. Aortic stenosis. 3. Vertebral fracture and severe low back pain. 4. Insulin-dependent diabetes mellitus. 5. End-stage renal disease, on hemodialysis. 6. Carotid stenosis with history of cerebrovascular accident. I discussed the patient's condition with the patient's and the patient's son and the rest of the family present in the room and I agree that the patient will need continuous care and hemodialysis and agree with plan to transfer the patient to an LTAC unit for continuous medical and hemodialysis treatment. MD JAROD DangeloH/MODL /[id number]
[2020-02-02] VITALS: BP 167/73
--- NOTE | 2020-02-02 00:34 | NUR ---
R-ac 20g iv started, iv patent and intact, nursing education provided to patient regarding infiltration, kati rn informed of iv start, kati rn will continue to monitor.
[2020-02-02] MEDS: HYDROMORPHONE 1MG/1ML INJ IV PRN (00:50)
[2020-02-02] MEDS: ALBUTEROL SULF 0.083% NEB SOLN 3 ML NEB NEB SCH (01:10)
[2020-02-02 04:00] VITALS: BP 169/74
[2020-02-02 05:13] LABS: BASOPHILS # (AUTO) 0.1 (0.0-0.1); BASOPHILS % 0.4 % (0.0-1.0); EOSINOPHILS % 0.1 % (0.0-6.0); HEMATOCRIT 29.6 % (34.2-44.1); HEMOGLOBIN 9.1 g/dL (12.0-16.0); LYMPHOCYTES # (AUTO) 0.6 (1.0-3.2); LYMPHOCYTES % 2.8 % (18.0-39.1); MEAN CORPUSCULAR HEMOGLOBIN 29.2 pg (28-32); MEAN CORPUSCULAR HGB CONC 30.7 g/dL (31-35); MEAN CORPUSCULAR VOLUME 94.9 fL (81-99); MONOCYTES # (AUTO) 2.2 (0.2-0.8); MONOCYTES % 10.2 % (4.4-11.3); NEUTROPHILS # (AUTO) 17.7 (2.1-6.9); NEUTROPHILS % 83.4 % (38.7-80.0); PLATELET COUNT 199 x10e3/uL (140-360); RED BLOOD COUNT 3.12 x10e6/uL (3.6-5.1); RED CELL DISTRIBUTION WIDTH 14.1 % (11.7-14.4)
[2020-02-02 05:30] LABS: ANION GAP 17.5 mmol/L (8-16); CALCIUM 8.2 mg/dL (8.4-10.2); CREATININE, SERUM 3.1 mg/dL (0.57-1.11); POTASSIUM 4.5 mmol/L (3.5-5.1)
[2020-02-02 08:00] VITALS: BP 157/89
[2020-02-02] MEDS: INSULIN LISPRO 100 UNIT/1 ML 3ML VIAL SQ SCH ×2 (08:25)
[2020-02-02] MEDS: FUROSEMIDE INJ 10 MG/ML 2 ML VIAL IV SCH (08:51)
[2020-02-02] MEDS: MEROPENEM 500MG/ NS 50ML 50 ML IV SCH (08:51)
[2020-02-02] MEDS: CARVEDILOL 12.5 MG TAB PO SCH (08:51)
[2020-02-02] MEDS: AZITHROMYCIN 250 MG TAB PO SCH (08:52)
[2020-02-02] MEDS: SODIUM BICARBONATE 650 MG TAB PO SCH (08:52)
[2020-02-02] MEDS: VENLAFAXINE HCL 75 MG CAPCR PO SCH (08:52)
[2020-02-02 08:55] VITALS: BP 157/89
--- NOTE | 2020-02-02 08:55 | Diagnostic Imaging Report ---
EXAMINATION: CHEST SINGLE (PORTABLE) INDICATION: Pneumonia COMPARISON: Chest radiograph 01/31/2020 FINDINGS: LINES/TUBES:Right IJ tunneled hemodialysis catheter terminates in the proximal right atrium. EKG leads overlie the chest. LUNGS:The lungs are moderately inflated. There is perihilar fullness and indistinctness of the pulmonary vasculature. Bibasilar patchy opacities. PLEURA:No pleural effusion or pneumothorax. MEDIASTINUM:Cardiomediastinal silhouette is stably enlarged. Atherosclerotic calcifications of the thoracic aorta. BONES/SOFT TISSUES:No acute osseous injury. ABDOMEN:No free air under the diaphragm. IMPRESSION: Unchanged cardiomegaly and pulmonary interstitial edema. Unchanged bibasilar opacities, which may represent airspace edema, atelectasis, or alternatively superimposed aspiration or pneumonia. Signed by: Quan Muniz MD on 02/02/2020 8:52 AM
--- NOTE | 2020-02-02 09:00 | NUR ---
The pt. was positioned to the window so that she could speak with family members on the phone. She was noted to have agonal breathing and oxygen is intact.
--- NOTE | 2020-02-02 10:40 | NUR ---
The telesales professional called to ask for someone to check the pt. as her heart rate is 21. This television writer immediately went into the room and found the pt. with no pulse or respirations. The family is in attendance. The ER dr, has been notified to come for proununciation of the pt. . Dr. Loyda verde of record has geri notified.
--- NOTE | 2020-02-02 11:00 | NUR ---
Dr. Romo from the ER has come to pronounce the pt. .
--- NOTE | 2020-02-02 11:15 | NUR ---
ASSESSMENT: Spiritual distress Pt's family actively grieving. Pt's family at bedside expressing emotions through words and tears. Intervention: Provided empathic listening and supportive pastoral presence. Facilitated storytelling. Provided information on how to reach oil field pipeline supervisor, if needed. Outcome: Pt's family expressed appreciation for visit. ADELIA SALTER Special Education Inclusion Teacher Spiritual Care Department O: [phone]
--- NOTE | 2020-02-02 12:11 | NUR ---
[facility] is notified to bean picker machine operator the remains
--- NOTE | 2020-02-02 12:20 | NUR ---
DR MIRAMONTES HERE AND SPOKE WITH PT, , SON AND DTR ABOUT WEATHER OR NOT TO CONTINUE DIALYSIS PT WISHES TO STOP DIALYSIS THEY WISH TO PROCEED WITH TRANSFER TO LT[facility] FOR [facility]: BED 906 REPORT TO [phone] Navjot BARRON ADMIN: SONIA HUNTER MOT COMPLETE AND NURSE GIVEN NUMBER TO CALL REPORT PT BEFORE TRANSFER DNR
--- NOTE | 2020-02-02 14:48 | NUR ---
[facility] personnel are her to collect the pt's remains.
== END 2020-02-02 14:42 | disposition expired | DRG 871 ==
LOC: MED/SURG2 11:33 → IMCU 22:39 → MED/SURG 01-22 17:48
PROVIDERS: ADMIT Internal Medicine Medical Oncology; ATTEND Internal Medicine Medical Oncology
PROC: 02HV33Z Insertion of Infusion Device into Superior Vena Cava, Percutaneous Approach (ICD-10-PCS; principal; 2020-01-25)
PROC: B548ZZA Ultrasonography of Superior Vena Cava, Guidance (ICD-10-PCS; 2020-01-25)
PROC: 5A1D70Z Performance of Urinary Filtration, Intermittent, Less than 6 Hours Per Day (ICD-10-PCS; 2020-01-25)
PROC: 5A1D70Z Performance of Urinary Filtration, Intermittent, Less than 6 Hours Per Day (ICD-10-PCS; 2020-01-26)
PROC: 5A1D70Z Performance of Urinary Filtration, Intermittent, Less than 6 Hours Per Day (ICD-10-PCS; 2020-01-27)
PROC: 5A1D70Z Performance of Urinary Filtration, Intermittent, Less than 6 Hours Per Day (ICD-10-PCS; 2020-01-30)
PROC: 02PY33Z Removal of Infusion Device from Great Vessel, Percutaneous Approach (ICD-10-PCS; 2020-02-01)
PROC: 02H633Z Insertion of Infusion Device into Right Atrium, Percutaneous Approach (ICD-10-PCS; 2020-02-01)
PROC: 0JH63XZ Insertion of Tunneled Vascular Access Device into Chest Subcutaneous Tissue and Fascia, Percutaneous Approach (ICD-10-PCS; 2020-02-01)
PROC: B548ZZA Ultrasonography of Superior Vena Cava, Guidance (ICD-10-PCS; 2020-02-01)
PROC: 5A1D70Z Performance of Urinary Filtration, Intermittent, Less than 6 Hours Per Day (ICD-10-PCS; 2020-02-01)
DX: A41.51 Sepsis due to Escherichia coli [E. coli] (principal); J15.9 Unspecified bacterial pneumonia; N17.0 Acute kidney failure with tubular necrosis; J96.90 Respiratory failure, unspecified, unspecified whether with hypoxia or hypercapnia; N18.6 End stage renal disease; I13.0 Hypertensive heart and chronic kidney disease with heart failure and stage 1 through stage 4 chronic kidney disease, or unspecified chronic kidney disease; N17.9 Acute kidney failure, unspecified; M48.54XA Collapsed vertebra, not elsewhere classified, thoracic region, initial encounter for fracture; I13.2 Hypertensive heart and chronic kidney disease with heart failure and with stage 5 chronic kidney disease, or end stage renal disease; W18.39XA Other fall on same level, initial encounter; R55 Syncope and collapse; E11.22 Type 2 diabetes mellitus with diabetic chronic kidney disease; I12.9 Hypertensive chronic kidney disease with stage 1 through stage 4 chronic kidney disease, or unspecified chronic kidney disease; E78.5 Hyperlipidemia, unspecified; I25.10 Atherosclerotic heart disease of native coronary artery without angina pectoris; I50.9 Heart failure, unspecified; Z88.5 Allergy status to narcotic agent; E87.5 Hyperkalemia; M47.816 Spondylosis without myelopathy or radiculopathy, lumbar region; M48.061 Spinal stenosis, lumbar region without neurogenic claudication; D50.9 Iron deficiency anemia, unspecified; Z11.59 Encounter for screening for other viral diseases; E11.65 Type 2 diabetes mellitus with hyperglycemia; Z66 Do not resuscitate; D69.6 Thrombocytopenia, unspecified; Z79.4 Long term (current) use of insulin
CPT/HCPCS: 36415; 36556; 36558; 36600; 70450; 71045; 72141; 72146; 72148; 74230; 74470; 76604; 76770; 76937; 77001; 80048; 80053; 80202; 81001; 82550; 82553; 82570; 82805; 82948; 83036; 83880; 84145; 84300; 84439; 84443; 84484; 85025; 85379; 85610; 86704; 86705; 86706; 87040; 87071; 87186; 87205; 87340; 90962; 93005; 93306; 93880; 94002; 94640; 94660; 96361; 96372; 97139; C1769; C1892; J0360; J0456; J0692; J1170; J1644; J1815; J1817; J1885; J1940; J2001; J2150; J2250; J2543; J3010; J3370; J7030; J7050; J7799; U0002